=== PATIENT | male | born 1940 | race Caucasian/White ===

== ENCOUNTER 2018-04-05 18:47 | Emergency (ER) | payer MEDICARE, OTHER, SELFPAY ==
[~2018-04-05] VITALS: Ht 175.3 cm; Wt 68.0 kg
[2018-04-05] MEDS ORDERED: TAMS.4ER PO (19:00)
[2018-04-05 19:24] LABS: BASOPHILS ABSOLUTE AUTO 0.04 K/mm3 (0.00-0.23); BASOPHILS PERCENT AUTO 0 % (0-2); EOSINOPHILS ABSOLUTE AUTO 0.11 K/mm3 (0.00-0.68); EOSINOPHILS PERCENT AUTO 1 % (0-6); Hematocrit 45.7 % (37.0-53.0); IMMATURE GRAN ABSOLUTE AUTO 0.06 K/mm3 (0.00-0.10); IMMATURE GRAN PERCENT AUTO 1 % (0-1); LYMPHOCYTES ABSOLUTE AUTO 1.61 K/mm3 (0.84-5.20); LYMPHOCYTES PERCENT AUTO 15 % (21-46); MONOCYTES ABSOLUTE AUTO 0.88 K/mm3 (0.16-1.47); MONOCYTES PERCENT AUTO 8 % (4-13); Mean Corpuscular HGB 28.8 pg (26.0-34.0); Mean Corpuscular HGB Conc 32.8 g/dL (31.5-36.5); Mean Corpuscular Volume 88 fL (80-100); Mean Platelet Volume 8.7 fL (9.1-12.4); NEUTROPHILS ABSOLUTE AUTO 8.02 K/mm3 (1.96-9.15); NEUTROPHILS PERCENT AUTO 75 % (41-73); Platelet Count 222 K/mm3 (150-400); RDW Coefficient Variation 14.1 % (11.7-14.2); RDW Standard Deviation 45.7 fL (35.1-46.3); White Blood Cell Count 10.72 K/mm3 (4.00-11.30)
[2018-04-05 19:45] LABS: Alanine Aminotransfer (ALT/SGP 25 U/L (12-78); Albumin, Blood 3.5 g/dL (3.4-5.0); Albumin/Globulin Ratio 0.9 (0.8-1.8); Alk Phos 118 U/L (50-136); Anion Gap 8 mmol/L (6-16); Aspartate Aminotrans (AST/SGOT 20 U/L (12-37); Bilirubin, Total 0.4 mg/dL (0.1-1.0); Blood Urea Nitrogen 20 mg/dL (8-24); Bun/Creatinine Ratio 18.7 (12.0-20.0); CO2, Blood 22 mmol/L (21-32); Calcium, Blood 9.2 mg/dL (8.5-10.1); Chloride, Blood 109 mmol/L (98-108); Creatinine, Blood 1.07 mg/dL (0.60-1.20); Globulin, Blood 4.1 g/dL (2.2-4.0); Glomerular Filtration Rate >60 (60-); Glucose, Blood 110 mg/dL (70-99); Magnesium, Blood 2.3 mg/dL (1.6-2.4); Potassium, Blood 3.7 mmol/L (3.5-5.5); Sodium, Blood 139 mmol/L (136-145); Total Protein, Blood 7.6 g/dL (6.4-8.2)
== END 2018-04-05 22:37 | disposition home or self-care (01) ==
LOC: ER 18:47
PROVIDERS: Emergency Medicine
DX: R56.9 Unspecified convulsions (principal); Z88.1 Allergy status to other antibiotic agents; Z79.899 Other long term (current) drug therapy
CPT/HCPCS: 70450; 80053; 83735; 84100; 85025; 93005; 93010; 99285-25

== ENCOUNTER 2018-06-27 09:04 | Emergency (ER) | payer MEDICARE, OTHER ==
[~2018-06-27] VITALS: Ht 175.3 cm; Wt 65.8 kg
[~2018-06-27 09:04] MED LIST: LEVE500 PO; LISI5 PO; TAMS.4ER PO
[2018-06-27 11:11] LABS: BASOPHILS ABSOLUTE AUTO 0.04 K/mm3 (0.00-0.23); BASOPHILS PERCENT AUTO 1 % (0-2); EOSINOPHILS ABSOLUTE AUTO 0.05 K/mm3 (0.00-0.68); EOSINOPHILS PERCENT AUTO 1 % (0-6); Hematocrit 43.9 % (37.0-53.0); Hemoglobin 14.3 g/dL (13.5-17.5); IMMATURE GRAN ABSOLUTE AUTO 0.04 K/mm3 (0.00-0.10); IMMATURE GRAN PERCENT AUTO 1 % (0-1); LYMPHOCYTES ABSOLUTE AUTO 1.16 K/mm3 (0.84-5.20); LYMPHOCYTES PERCENT AUTO 17 % (21-46); MONOCYTES ABSOLUTE AUTO 0.66 K/mm3 (0.16-1.47); MONOCYTES PERCENT AUTO 9 % (4-13); Mean Corpuscular HGB 28.8 pg (26.0-34.0); Mean Corpuscular HGB Conc 32.6 g/dL (31.5-36.5); Mean Corpuscular Volume 89 fL (80-100); Mean Platelet Volume 8.8 fL (9.1-12.4); NEUTROPHILS ABSOLUTE AUTO 5.07 K/mm3 (1.96-9.15); NEUTROPHILS PERCENT AUTO 72 % (41-73); Platelet Count 221 K/mm3 (150-400); RDW Coefficient Variation 13.4 % (11.7-14.2); RDW Standard Deviation 43.4 fL (35.1-46.3); Red Blood Cell Count 4.96 M/mm3 (4.30-5.90); White Blood Cell Count 7.02 K/mm3 (4.00-11.30)
[2018-06-27 11:30] LABS: Alanine Aminotransfer (ALT/SGP 23 U/L (12-78); Albumin, Blood 3.3 g/dL (3.4-5.0); Albumin/Globulin Ratio 0.8 (0.8-1.8); Alk Phos 118 U/L (50-136); Anion Gap 6 mmol/L (6-16); Aspartate Aminotrans (AST/SGOT 15 U/L (12-37); Bilirubin, Total 0.3 mg/dL (0.1-1.0); Blood Urea Nitrogen 17 mg/dL (8-24); CO2, Blood 27 mmol/L (21-32); Calcium, Blood 9.1 mg/dL (8.5-10.1); Chloride, Blood 107 mmol/L (98-108); Creatinine, Blood 1.06 mg/dL (0.60-1.20); Glomerular Filtration Rate >60 (60-); Glucose, Blood 101 mg/dL (70-99); Magnesium, Blood 2.2 mg/dL (1.6-2.4); Potassium, Blood 4.5 mmol/L (3.5-5.5); Sodium, Blood 140 mmol/L (136-145); Total Protein, Blood 7.3 g/dL (6.4-8.2); Troponin I <0.015 ng/mL (0.000-0.040)
== END 2018-06-27 12:19 | disposition home or self-care (01) ==
LOC: ER 09:04
PROVIDERS: Emergency Medicine
DX: G40.909 Epilepsy, unspecified, not intractable, without status epilepticus (principal); F06.4 Anxiety disorder due to known physiological condition; Z88.1 Allergy status to other antibiotic agents; Z79.899 Other long term (current) drug therapy
CPT/HCPCS: 36415; 71045; 80053; 83735; 84443; 84484; 85025; 93005; 93010; 99284-25

== ENCOUNTER 2019-03-21 11:40 | Emergency (ER) | payer MEDICARE, OTHER ==
[~2019-03-21] VITALS: Ht 175.3 cm; Wt 65.8 kg
[2019-03-21 13:26] LABS: Source, Urine Clean Catch
[2019-03-21 13:49] LABS: Bilirubin, Urine Neg (Neg); Blood, Urine 1+ (Neg); Glucose Qualitative, Urine 1+ (Neg); Ketones, Urine 1+ (Neg); Leukocyte Esterase, Urine 3+ (Neg); Nitrite, Urine Pos (Neg); Protein, Urine 2+ (Neg); Urobilinogen, Urine NORM (Normal)
[2019-03-21 14:00] LABS: Appearance, Urine Clear (Clear); Color, Urine Yellow (P-Yellow)
[2019-03-21 14:38] LABS: Bacteria Rare /hpf; Red Blood Cells, Urine 0-2 /hpf (0-2); Squamous Epithelial Cells Few /hpf (Few); White Blood Cells, Urine Rare /hpf (0-5)
[2019-03-21] MEDS ORDERED: Keflex500 MG PO (16:43)
== END 2019-03-21 18:04 | disposition home or self-care (01) ==
LOC: ER 11:40
PROVIDERS: Emergency Medicine
DX: N39.0 Urinary tract infection, site not specified (principal); Z88.1 Allergy status to other antibiotic agents; Z79.899 Other long term (current) drug therapy; I10 Essential (primary) hypertension
CPT/HCPCS: 51701; 51702; 51798; 81001; 87086; 99283-25

== ENCOUNTER 2020-06-20 09:12 | Emergency (ER) | payer MEDICARE, OTHER ==
[~2020-06-20] VITALS: Ht 167.6 cm; Wt 66.2 kg
[~2020-06-20 09:12] MED LIST changes: +Keflex500 MG PO
[2020-06-20 11:00] LABS: BASOPHILS ABSOLUTE AUTO 0.04 K/mm3 (0.00-0.23); BASOPHILS PERCENT AUTO 0 % (0-2); EOSINOPHILS ABSOLUTE AUTO 0.07 K/mm3 (0.00-0.68); EOSINOPHILS PERCENT AUTO 1 % (0-6); Hematocrit 49.9 % (37.0-53.0); Hemoglobin 16.2 g/dL (13.5-17.5); IMMATURE GRAN ABSOLUTE AUTO 0.05 K/mm3 (0.00-0.10); IMMATURE GRAN PERCENT AUTO 1 % (0-1); LYMPHOCYTES ABSOLUTE AUTO 1.34 K/mm3 (0.84-5.20); LYMPHOCYTES PERCENT AUTO 15 % (21-46); MONOCYTES PERCENT AUTO 9 % (4-13); Mean Corpuscular HGB 28.8 pg (26.0-34.0); Mean Corpuscular HGB Conc 32.5 g/dL (31.5-36.5); Mean Corpuscular Volume 89 fL (80-100); Mean Platelet Volume 8.8 fL (9.1-12.4); NEUTROPHILS ABSOLUTE AUTO 6.75 K/mm3 (1.96-9.15); NEUTROPHILS PERCENT AUTO 75 % (41-73); Platelet Count 249 K/mm3 (150-400); RDW Coefficient Variation 12.6 % (11.7-14.2); RDW Standard Deviation 41.1 fL (35.1-46.3); Red Blood Cell Count 5.62 M/mm3 (4.30-5.90); White Blood Cell Count 9.05 K/mm3 (4.00-11.30)
[2020-06-20 11:17] LABS: Alanine Aminotransfer (ALT/SGP 22 U/L (12-78); Albumin, Blood 3.3 g/dL (3.4-5.0); Albumin/Globulin Ratio 0.8 (0.8-1.8); Alk Phos 137 U/L (50-136); Anion Gap 4 mmol/L (6-16); Aspartate Aminotrans (AST/SGOT 21 U/L (12-37); Bilirubin, Total 0.5 mg/dL (0.1-1.0); Blood Urea Nitrogen 23 mg/dL (8-24); Bun/Creatinine Ratio 21.5 (12.0-20.0); CO2, Blood 26 mmol/L (21-32); Calcium, Blood 9.4 mg/dL (8.5-10.1); Chloride, Blood 111 mmol/L (98-108); Creatinine, Blood 1.07 mg/dL (0.60-1.20); Globulin, Blood 4.2 g/dL (2.2-4.0); Glomerular Filtration Rate >60 (60-); Glucose, Blood 95 mg/dL (70-99); Potassium, Blood 4.3 mmol/L (3.5-5.5); Sodium, Blood 141 mmol/L (136-145); Total Protein, Blood 7.5 g/dL (6.4-8.2)
== END 2020-06-20 13:20 | disposition home or self-care (01) ==
LOC: ER 09:12
PROVIDERS: Emergency Medicine
DX: R29.818 Other symptoms and signs involving the nervous system (principal); R26.2 Difficulty in walking, not elsewhere classified; I10 Essential (primary) hypertension; Z86.011 Personal history of benign neoplasm of the brain; Z88.1 Allergy status to other antibiotic agents; Z79.899 Other long term (current) drug therapy
CPT/HCPCS: 36415; 70450; 80053; 83735; 85025; 93005; 93010; 96374; 96375; 99284-25; J1100; J3360

== ENCOUNTER 2021-01-12 05:38 | Emergency (ER) | payer MEDICARE, OTHER ==
[~2021-01-12] VITALS: Ht 177.8 cm; Wt 69.0 kg
[2021-01-12 06:12] LABS: BASOPHILS ABSOLUTE AUTO 0.04 K/mm3 (0.00-0.23); BASOPHILS PERCENT AUTO 1 % (0-2); EOSINOPHILS PERCENT AUTO 0 % (0-6); Hemoglobin 15.2 g/dL (13.5-17.5); IMMATURE GRAN ABSOLUTE AUTO 0.19 K/mm3 (0.00-0.10); IMMATURE GRAN PERCENT AUTO 5 % (0-1); LYMPHOCYTES ABSOLUTE AUTO 0.31 K/mm3 (0.84-5.20); LYMPHOCYTES PERCENT AUTO 8 % (21-46); MONOCYTES ABSOLUTE AUTO 0.04 K/mm3 (0.16-1.47); MONOCYTES PERCENT AUTO 1 % (4-13); Mean Corpuscular HGB 28.7 pg (26.0-34.0); Mean Corpuscular HGB Conc 33.8 g/dL (31.5-36.5); Mean Corpuscular Volume 85 fL (80-100); Mean Platelet Volume 9.1 fL (9.1-12.4); NEUTROPHILS ABSOLUTE AUTO 3.23 K/mm3 (1.96-9.15); NEUTROPHILS PERCENT AUTO 85 % (41-73); Platelet Count 187 K/mm3 (150-400); RDW Coefficient Variation 13.2 % (11.7-14.2); RDW Standard Deviation 40.9 fL (35.1-46.3); White Blood Cell Count 3.81 K/mm3 (4.00-11.30)
[2021-01-12 06:24] LABS: Alanine Aminotransfer (ALT/SGP 23 U/L (12-78); Albumin, Blood 3.2 g/dL (3.4-5.0); Albumin/Globulin Ratio 0.9 (0.8-1.8); Alk Phos 120 U/L (50-136); Anion Gap 9 mmol/L (6-16); Aspartate Aminotrans (AST/SGOT 23 U/L (12-37); Bilirubin, Total 0.6 mg/dL (0.1-1.0); Blood Urea Nitrogen 25 mg/dL (8-24); CO2, Blood 20 mmol/L (21-32); Calcium, Blood 8.2 mg/dL (8.5-10.1); Chloride, Blood 112 mmol/L (98-108); Creatinine, Blood 1.04 mg/dL (0.60-1.20); Globulin, Blood 3.4 g/dL (2.2-4.0); Glomerular Filtration Rate >60 (60-); Glucose, Blood 120 mg/dL (70-99); Potassium, Blood 3.4 mmol/L (3.5-5.5); Sodium, Blood 141 mmol/L (136-145); Total Protein, Blood 6.6 g/dL (6.4-8.2)
[2021-01-12 06:43] LABS: Source, Urine Clean Catch
[2021-01-12 06:45] LABS: Bilirubin, Urine Neg (Neg); Blood, Urine 5+ (Neg); Glucose Qualitative, Urine Neg (Neg); Ketones, Urine Neg (Neg); Leukocyte Esterase, Urine 3+ (Neg); Nitrite, Urine Pos (Neg); Protein, Urine 1+ (Neg); Urobilinogen, Urine NORM (Normal)
[2021-01-12] MEDS ORDERED: Prinivil10 MG PO (07:01)
[2021-01-12] MEDS ORDERED: DEXA4 PO (07:01)
[2021-01-12] MEDS ORDERED: ZANTAC-360 (FAM20 MG PO (07:02)
[2021-01-12 07:03] LABS: Appearance, Urine Hazy (Clear); Color, Urine Yellow (P-Yellow)
[2021-01-12] MEDS ORDERED: Keppra750 MG PO (07:03)
[2021-01-12] MEDS ORDERED: METOPROLOL TART25 MG PO (07:03)
[2021-01-12 07:04] LABS: Red Blood Cells, Urine TNTC /hpf (0-2)
[2021-01-12 07:06] LABS: Bacteria Many /hpf; Squamous Epithelial Cells Rare /hpf (Few)
[2021-01-12] MEDS ORDERED: CEPH500 PO (11:01)
== END 2021-01-12 11:20 | disposition home or self-care (01) ==
LOC: ER 05:38
PROVIDERS: Emergency Medicine
DX: R33.9 Retention of urine, unspecified (principal); R39.15 Urgency of urination; R10.9 Unspecified abdominal pain; I10 Essential (primary) hypertension; Z79.899 Other long term (current) drug therapy
CPT/HCPCS: 51702; 74176; 80053; 81001; 83690; 85025; 87077; 87086; 87186; 96365-59; 96375-59; 99284-25; J0696; J1170; J2405

== ENCOUNTER 2021-01-26 08:19 | Emergency (ER) | payer MEDICARE, OTHER ==
[~2021-01-26] VITALS: Ht 172.7 cm; Wt 72.6 kg
[~2021-01-26 08:19] MED LIST changes: +CEPH500 PO; +DEXA4 PO; +Keppra750 MG PO; +METOPROLOL TART25 MG PO; +Prinivil10 MG PO; +ZANTAC-360 (FAM20 MG PO
[2021-01-26] MEDS ORDERED: LIDO5TO TOP (09:40)
== END 2021-01-26 10:22 | disposition home or self-care (01) ==
LOC: ER 08:19
DX: N36.8 Other specified disorders of urethra (principal); I10 Essential (primary) hypertension; Z88.1 Allergy status to other antibiotic agents; Z79.899 Other long term (current) drug therapy
CPT/HCPCS: 99283; A9270

== ENCOUNTER 2022-01-14 06:08 | Emergency (ER) | payer MEDICARE, OTHER ==
[~2022-01-14] VITALS: Ht 167.6 cm; Wt 59.0 kg
[~2022-01-14 06:08] MED LIST changes: +LIDO5TO TOP
[2022-01-14 06:32] LABS: BASOPHILS ABSOLUTE AUTO 0.05 K/mm3 (0.00-0.23); BASOPHILS PERCENT AUTO 1 % (0-2); EOSINOPHILS PERCENT AUTO 1 % (0-6); Hematocrit 53.6 % (37.0-53.0); Hemoglobin 17.8 g/dL (13.5-17.5); IMMATURE GRAN ABSOLUTE AUTO 0.04 K/mm3 (0.00-0.10); IMMATURE GRAN PERCENT AUTO 1 % (0-1); LYMPHOCYTES ABSOLUTE AUTO 2.11 K/mm3 (0.84-5.20); LYMPHOCYTES PERCENT AUTO 27 % (21-46); MONOCYTES ABSOLUTE AUTO 0.65 K/mm3 (0.16-1.47); MONOCYTES PERCENT AUTO 8 % (4-13); Mean Corpuscular HGB 27.9 pg (26.0-34.0); Mean Corpuscular HGB Conc 33.2 g/dL (31.5-36.5); Mean Corpuscular Volume 84 fL (80-100); Mean Platelet Volume 8.7 fL (9.1-12.4); NEUTROPHILS ABSOLUTE AUTO 4.75 K/mm3 (1.96-9.15); NEUTROPHILS PERCENT AUTO 62 % (41-73); Platelet Count 239 K/mm3 (150-400); RDW Coefficient Variation 13.2 % (11.7-14.2); RDW Standard Deviation 39.9 fL (35.1-46.3); Red Blood Cell Count 6.37 M/mm3 (4.30-5.90)
[2022-01-14 07:02] LABS: Albumin, Blood 3.6 g/dL (3.4-5.0); Albumin/Globulin Ratio 0.8 (0.8-1.8); Bilirubin, Total 0.4 mg/dL (0.1-1.0); Bun/Creatinine Ratio 12.7 (12.0-20.0); Calcium, Blood 9.7 mg/dL (8.5-10.1); Creatinine, Blood 1.18 mg/dL (0.60-1.20); Globulin, Blood 4.6 g/dL (2.2-4.0); Potassium, Blood 4.2 mmol/L (3.5-5.5); Total Protein, Blood 8.2 g/dL (6.4-8.2)
== END 2022-01-14 11:23 | disposition home or self-care (01) ==
LOC: ER 06:08
PROVIDERS: Emergency Medicine
DX: R56.9 Unspecified convulsions (principal); G93.89 Other specified disorders of brain; I10 Essential (primary) hypertension; Z88.8 Allergy status to other drugs, medicaments and biological substances; Z79.899 Other long term (current) drug therapy
CPT/HCPCS: 36415; 70450; 80053; 85025; 93005; 93010; J1953; J2060

== ENCOUNTER 2022-04-06 10:19 | Inpatient (IN) | payer MEDICARE, OTHER ==
[~2022-04-06] VITALS: Ht 172.7 cm; Wt 53.0 kg
[2022-04-06 10:53] LABS: BASOPHILS ABSOLUTE AUTO 0.05 K/mm3 (0.00-0.23); BASOPHILS PERCENT AUTO 0 % (0-2); EOSINOPHILS PERCENT AUTO 0 % (0-6); Hematocrit 54.2 % (37.0-53.0); Hemoglobin 18.6 g/dL (13.5-17.5); IMMATURE GRAN PERCENT AUTO 1 % (0-1); LYMPHOCYTES ABSOLUTE AUTO 0.48 K/mm3 (0.84-5.20); LYMPHOCYTES PERCENT AUTO 3 % (21-46); MONOCYTES ABSOLUTE AUTO 1.21 K/mm3 (0.16-1.47); MONOCYTES PERCENT AUTO 8 % (4-13); Mean Corpuscular HGB 28.7 pg (26.0-34.0); Mean Corpuscular HGB Conc 34.3 g/dL (31.5-36.5); Mean Corpuscular Volume 84 fL (80-100); Mean Platelet Volume 8.3 fL (9.1-12.4); NEUTROPHILS ABSOLUTE AUTO 12.59 K/mm3 (1.96-9.15); NEUTROPHILS PERCENT AUTO 87 % (41-73); Platelet Count 247 K/mm3 (150-400); RDW Coefficient Variation 13.6 % (11.7-14.2); RDW Standard Deviation 41.2 fL (35.1-46.3); Red Blood Cell Count 6.48 M/mm3 (4.30-5.90); White Blood Cell Count 14.43 K/mm3 (4.00-11.30)
[2022-04-06 11:12] LABS: International Normalized Ratio 1.06; Prothrombin Time Results 11.1 Sec (9.7-11.5)
[2022-04-06 11:14] LABS: Albumin, Blood 3.7 g/dL (3.4-5.0); Albumin/Globulin Ratio 0.8 (0.8-1.8); Bilirubin, Total 0.9 mg/dL (0.1-1.0); Bun/Creatinine Ratio 14.2 (12.0-20.0); Calcium, Blood 9.9 mg/dL (8.5-10.1); Creatinine, Blood 1.48 mg/dL (0.60-1.20); Globulin, Blood 4.4 g/dL (2.2-4.0); Potassium, Blood 3.9 mmol/L (3.5-5.5); Total Protein, Blood 8.1 g/dL (6.4-8.2)
[2022-04-06] MEDS ORDERED: Keppra750 MG PO (13:04)
[2022-04-06 13:41] LABS: Influenza A, PCR NEGATIVE (NEGATIVE); Influenza B, PCR NEGATIVE (NEGATIVE); Resp Syncytial Virus, PCR NEGATIVE (NEGATIVE); SARS-Cov-2 (COVID-19) PCR, MMC NEGATIVE (NEGATIVE)
[2022-04-06 16:14] LABS: Source, Urine Clean Catch
[2022-04-06 17:22] LABS: CPK Creatine Kinase 2112 U/L (39-308)
[2022-04-06 17:44] LABS: Creatine Kinase MB 34.3 ng/mL (0.0-3.6); Creatine Kinase MB Index 1.6 (0.0-4.0)
[2022-04-06 17:46] LABS: Appearance, Urine Bloody (Clear); Bilirubin, Urine Neg (Neg); Blood, Urine 5+ (Neg); Color, Urine Brown (P-Yellow); Glucose Qualitative, Urine Neg (Neg); Ketones, Urine 4+ (Neg); Leukocyte Esterase, Urine 1+ (Neg); Nitrite, Urine Pos (Neg); Protein, Urine 3+ (Neg); Specific Gravity, Urine 1.025 (1.003-1.022); Urobilinogen, Urine 1+ (Normal)
[2022-04-06 18:09] LABS: Red Blood Cells, Urine TNTC /hpf (0-2)
[2022-04-06 18:11] LABS: Bacteria Many /hpf; Renal Epithelial Rare /hpf (0-Rare); Squamous Epithelial Cells Rare /hpf (Few)
--- NOTE | 2022-04-06 18:47 | NUR ---
END OF SHIFT SUMMARY: NO CHANGE FROM SHIFT ASSESSMENT, PLEASE SEE ASSESSMENT
--- NOTE | 2022-04-06 20:05 | NUR ---
CALL TO PHYSICIAN This RN calls Dr Garza to update on pt status and discuss concerns regarding frequent seizures every 5 mins lasting several seconds. Notified that pt has decrease in SPO2 while seizing on 4.5 L of O2 via NC but sats back up to mid 90's within several seconds following. Notified of no PRN orders for seizures at this time and note from physicians stating little to no effect on seizures with admin of ativan in ER. Discussed concern for lack of CT w/contrast performed and order for MRI w/wo contrast that will not be able to be performed until tomorrow if possible. Provider states she will get more information and update RN with any new orders. Pt responds with some words, follows some commands such as to squeeze this RN's hand with R. L side arm and leg appear flacid, unable to squeeze this RN's hand with L which appears contractured. Pt has R-sided gaze, pupils are equal and reactive, 2-3 mm. Some aspirate with weak cough, gurgling heard frequently and suction needed. Pt states he is 83 years old, when asked the month speech is unintelligble. Pt responds with "Yes" when asked if sister Ivania is his decision maker. Pt has frequent seizure-like activity as evidenced by full body tonic-clonic movements and pt groaning and not responding to this RN for several seconds, appears to desat on the monitor while on 4.5 L O2 via NC. Back up to 96% from 70-80% in 1-2 seconds following drop during seizure-activity. Pt responds with garbled one word answers following cessation.
--- NOTE | 2022-04-06 23:11 | NUR ---
CALL TO PROVIDER THIS RN CALLS DR GARRIDO UPDATES ON WHAT DISCUSSED WITH RESIDENT PRIOR AND CONCERNS REGARDING CT SCAN AND PT SEIZURES. DISCUSSED CONCERN FOR NEED FOR ANTIBIOTICS. DR GARRIDO ORDERS RECEPHIN 2 GM TO BE GIVEN NOW IV AND DAILY. GIVES ORDER FOR OT DOSE OF ATIVAN 2 MG IV PRN FOR TRUE STATUS PRN IF PT CANNOT MAINTAIN AIWAY D/T SEIZURE LASTING 30 SECS OR GREATER.
[2022-04-07 02:35] LABS: Base Excess Venous -4.1 mmol/L; Bicarbonate Venous 21.3 mmol/L (24.0-30.0); PCO2 Venous 32.2 mmHg (38-42); pH Blood Venous 7.41 (7.34-7.37)
[2022-04-07 02:39] LABS: BASOPHILS ABSOLUTE AUTO 0.01 K/mm3 (0.00-0.23); BASOPHILS PERCENT AUTO 0 % (0-2); EOSINOPHILS PERCENT AUTO 0 % (0-6); Hematocrit 43.5 % (37.0-53.0); Hemoglobin 14.7 g/dL (13.5-17.5); IMMATURE GRAN ABSOLUTE AUTO 0.01 K/mm3 (0.00-0.10); IMMATURE GRAN PERCENT AUTO 0 % (0-1); LYMPHOCYTES ABSOLUTE AUTO 0.92 K/mm3 (0.84-5.20); LYMPHOCYTES PERCENT AUTO 10 % (21-46); MONOCYTES ABSOLUTE AUTO 0.85 K/mm3 (0.16-1.47); MONOCYTES PERCENT AUTO 9 % (4-13); Mean Corpuscular HGB 28.5 pg (26.0-34.0); Mean Corpuscular HGB Conc 33.8 g/dL (31.5-36.5); Mean Corpuscular Volume 85 fL (80-100); Mean Platelet Volume 8.5 fL (9.1-12.4); NEUTROPHILS ABSOLUTE AUTO 7.86 K/mm3 (1.96-9.15); NEUTROPHILS PERCENT AUTO 82 % (41-73); Platelet Count 192 K/mm3 (150-400); RDW Coefficient Variation 13.9 % (11.7-14.2); RDW Standard Deviation 42.9 fL (35.1-46.3); Red Blood Cell Count 5.15 M/mm3 (4.30-5.90); White Blood Cell Count 9.65 K/mm3 (4.00-11.30)
[2022-04-07 03:03] LABS: Albumin, Blood 2.6 g/dL (3.4-5.0); Albumin/Globulin Ratio 0.7 (0.8-1.8); Bilirubin, Total 0.7 mg/dL (0.1-1.0); Bun/Creatinine Ratio 25.2 (12.0-20.0); Calcium, Blood 8.6 mg/dL (8.5-10.1); Creatinine, Blood 1.03 mg/dL (0.60-1.20); Globulin, Blood 3.5 g/dL (2.2-4.0); Potassium, Blood 4.1 mmol/L (3.5-5.5)
[2022-04-07 03:06] LABS: Total Protein, Blood 6.1 g/dL (6.4-8.2)
--- NOTE | 2022-04-07 07:00 | NUR ---
SHIFT SUMMARY PT SEEMS LETHARGIC T/O SHIFT, RESPONDS WITH YES AND SOME GARBLED RESPONSES, SEEMED TO IMPROVE TOWARDS EARLY AM. PUPILS EQUAL AND REACTIVE, R SIDE GAZE, PT APPEARS TO NEGLECT L SIDE, L SIDE FACIAL PARALYSIS VISIBLE WITH SOME IMPROVEMENT FROM START OF SHIFT (CAN LIFT BROWS FOR THIS RN, AT START COULD NOT LIFT L BROW), REFLEXES PRESENT IN BLE. DIFFICULT TO ASSESS SENSATION D/T PT NEGLECT TO L SIDE AND UNABLE TO VERBALIZE A CONFIRMATION TO THAT SIDE. VERBALIZES WHEN THIS RN TOUCHES R ARM OR LEG. PT HAS COPIOUS SPUTUM AND DROOL, APPEARS TO HAVE DIFFICULTY SWALLOWING SECRETIONS. FREQUENT SUCTIONING AND ORAL CARE PERFORMED. PT IS TACHYPNEIC AT TIMES WITH SHALLOW BREATHING. SATS 93-95% ON RA THIS AM WHEN PULLED OFF CANNULA AND REQUESTED TO TRY IT OFF. PLACED BACK ON WHEN SOME APNEA IS NOTED WITH DESATS TO 90-92%. LS OTHERWISE CLEAR AND DIM. PT TURNED FREQUENTLY AND CHANGED D/T INCONTINENT OF URINE, NO STOOL NOTED THIS SHIFT. PT DENIES ABD TENDERNESS. (SOME DARK BROWN EXPECTORATE NOTED AND REPORTED TO DR GARRIDO). (PHOTO IN CHART) PT'S SEIZURE ACTIVITY HAS APPEARED TO LESSEN IN FREQUENCY T/O SHIFT. PT BECOMES TREMULOUS AND APPEARS TO HAVE SOME SEIZURE ACTIVITY WITH TURNS IN BED FOR REPOSITIONING AND CLEANING.
--- NOTE | 2022-04-07 15:15 | NUR ---
SEIZURE NOTE THIS NURSE WAS NOTIFIED THAT PT HAD SEIZURE ACTIVITY WHILE WORKING WITH GHADA HICKMAN SPEECH THERAPIST AT APPROX. 1430, TILE MACHINE OPERATOR DEEDEE LARSEN PROVIDED CARE DURING SEIZURE ACTIVITY, SEE EMAR WELL. THIS NURSE PLACED CALL TO DR. OSULLIVAN WITH NO ANSWER, NO VOICEMAIL SET UP SO NO MESSAGE LEFT. WILL CONTINUE TO REACH TO NOTIFY HER OF SEIZURE EVENT. SISTER WAS ALSO AT BEDSIDE. PT NOW APPEARS TO BE SLEEPING. CALL LIGHT WITHIN REACH, BED IN LOW, SEIZURE PRECAUTIONS IN PLACE.
--- NOTE | 2022-04-07 17:37 | NUR ---
SHIFT SUMMARY THIS AM PT WAS SOMNOLENT BUT ORIENTED X 4, HE WOULD WAKE TO VERBAL STIMULI. SPEECH WAS GARBLED BUT PT WAS ABLE TO MAKE HIS NEEDS KNOW. LLE HAD MINIMAL SPASTIC MOVEMENT THIS AM. NOW LLE HAS SPASTIC MOVEMENT W/ LEG FLEXING 90 DEGREE AT HIP AND KNEE. SEE PREVIOUS NOTE REGARDING SEIZURE ACTIVITY THIS AFTERNOON. BP AND HR STABLE. AWARE OF PROLONGED QT INTERVAL. THIS AFTERNOON THIS NURSE WAS NOTIFIED BY [employer] OF QT INTERVAL OF 600, THIS NURSE DISCUSSED QT INTERVAL W/ DEEDEE PENA RN. PT DENIED FEELINGS OF PAIN. SINCE SEIZURE ACTIVITY PT HAS BEEN SOMNOLENT AND WILL NOT WAKE TO NOXIOUS OR VERBAL STIMULI BUT CAN FOLLOW COMMAND SUCH WHEN TESTING SUPERVISOR ROVING DEPARTMENT STRENGTH AND DORSIFLEXION/PLANTAR FLEXION STRENGTH. SISTER WAS AT BEDSIDE FOR MAJORITY OF AFTERNOON. PER SPEECH THERAPY ORDERS PT IS NPO. Q2 TURNING IMPLIMENTED TO KEEP OFF OF PRESSURE POINTS. HEEL PROTECTORS IN PLACE AND HEELS ARE FLOATED. PT HAS BEEN INCONTINENT OF URINE, BRIEF CHANGES PROVIDED NECESSARY. MRI COMPLETED TODAY. SEE EMAR FOR CHANGES IN MEDICAL MANAGEMENT FOR SEIZURE ACTIVITY. SEIZURE PRECUATIONS IN PLACE, CALL LIGHT W/IN REACH OF RIGHT HAND.
--- NOTE | 2022-04-07 18:15 | NUR ---
CARE NOTE THIS NURSE WAS NOTIFIED BY KACI NELSON THAT PT WAS HAVING ANOTHER SEIZURE AT APPROX. 1800. DR. OSULLIVAN MADE AWARE. KEPPRA NOW INFUSING. DEEDEE PENA RN IS CURRENTLY AT BEDSIDE. NEW ORDERS PENDING FROM DR. OSULLIVAN.
[2022-04-08 04:07] LABS: BASOPHILS ABSOLUTE AUTO 0.01 K/mm3 (0.00-0.23); BASOPHILS PERCENT AUTO 0 % (0-2); EOSINOPHILS ABSOLUTE AUTO 0.02 K/mm3 (0.00-0.68); EOSINOPHILS PERCENT AUTO 0 % (0-6); Hematocrit 39.7 % (37.0-53.0); Hemoglobin 13.5 g/dL (13.5-17.5); IMMATURE GRAN ABSOLUTE AUTO 0.02 K/mm3 (0.00-0.10); IMMATURE GRAN PERCENT AUTO 0 % (0-1); LYMPHOCYTES ABSOLUTE AUTO 0.72 K/mm3 (0.84-5.20); LYMPHOCYTES PERCENT AUTO 11 % (21-46); MONOCYTES PERCENT AUTO 9 % (4-13); Mean Corpuscular HGB 28.8 pg (26.0-34.0); Mean Corpuscular Volume 85 fL (80-100); Mean Platelet Volume 8.7 fL (9.1-12.4); NEUTROPHILS ABSOLUTE AUTO 5.19 K/mm3 (1.96-9.15); NEUTROPHILS PERCENT AUTO 79 % (41-73); Platelet Count 166 K/mm3 (150-400); RDW Coefficient Variation 13.9 % (11.7-14.2); RDW Standard Deviation 43.3 fL (35.1-46.3); Red Blood Cell Count 4.68 M/mm3 (4.30-5.90); White Blood Cell Count 6.56 K/mm3 (4.00-11.30)
[2022-04-08 04:32] LABS: Albumin, Blood 2.4 g/dL (3.4-5.0); Albumin/Globulin Ratio 0.7 (0.8-1.8); Bilirubin, Total 0.5 mg/dL (0.1-1.0); Bun/Creatinine Ratio 23.3 (12.0-20.0); Calcium, Blood 8.4 mg/dL (8.5-10.1); Creatinine, Blood 0.9 mg/dL (0.60-1.20); Globulin, Blood 3.5 g/dL (2.2-4.0); Magnesium, Blood 1.8 mg/dL (1.6-2.4); Potassium, Blood 3.6 mmol/L (3.5-5.5); Total Protein, Blood 5.9 g/dL (6.4-8.2)
--- NOTE | 2022-04-08 04:56 | NUR ---
LOAN SERVICING REPRESENTATIVE SUMMARY PT BEGAN SHIFT OBTUNDED W ONLY MINOR MOTOR MOVEMENTS WHEN MOVED. THE PT'S MENTATION HAS IMPROVED THROUGHOUT THE SHIFT AND IS ANSWERING QUESTIONS APPROPRIATELY THIS AM. PT'S LEFT ARM REMAINS LOCALIZED TO HIS ABDOMEN. R ARM SHOWS NO IMPAIRMENT. RLE MAINLY FLACCID. LLE W GROSS MOTOR MOVEMENT W FLEXION AT THE HIP. O2 SATS >92% ON 3L NC W NPA IN PLACE AT START OF THE SHIFT BUT PT WEANED DOWN TO RM AIR THIS AM. BP WNL AND STABLE. TELE SHOWING SR IN THE 70s-80s W PROLONGED QT INTERVAL. PT REQUIRING SUCTIONING THROUGHOUT THE SHIFT TO CLEAR HIS SECRETIONS. WILL REPORT TO ONCOMING RN.
--- NOTE | 2022-04-08 18:30 | NUR ---
SHIFT SUMMARY PATIENT HAS BEEN ANSWERING QUESTIONS APPROPRIATELY THIS SHIFT. MORE AWAKE THAN PREVIOUS SHIFT. PATIENT USED CALL LIGHT APPRORIATELY TO CALL FOR HELP. PATIENT DOES CONTINUE TO BE LETHARGIC BUT WAKES WITH VERBAL STIMULI. NO NOTED SEIZURE ACTIVITY THIS SHIFT. PATIENT BEING TURNED Q2HRS. ORAL CARE GIVEN THROUGHOUT THE SHIFT. ST DETERMINED THE PATIENT IS STILL NOT SWALLOWING SO HE REMAINS NPO; MD AWARE. LEFT ARM CONTINUES TO HAVE NO MOVEMENT. RIGHT GAZE NOTED BUT PATIENT ABLE TO TRACK PEN WITH EYES. BRISK PUPIL RESPONSE LATER IN THE SHIFT COMPARED TO THE BEGINNING OF THE SHIFT. CONDOM CATHETER IN PLACE DRAINING LIGHT YELLOW URINE. MEPIPLEX IN PLACE ON COCCYX. NPA REMOVED EARLIER IN THE SHIFT SO PATIENT COULD WORK WITH SPEECH THERAPY. NO SIGNS OF DISTRESS OR ACUTE EVENTS DURING THIS SHIFT. BED IN LOWEST POSITION AND CALL LIGHT WITHIN REACH. WILL CONTINUE TO MONITOR UNTIL SHIFT CHANGE AT 1900.
[2022-04-09 04:10] LABS: BASOPHILS ABSOLUTE AUTO 0.03 K/mm3 (0.00-0.23); BASOPHILS PERCENT AUTO 0 % (0-2); EOSINOPHILS ABSOLUTE AUTO 0.04 K/mm3 (0.00-0.68); EOSINOPHILS PERCENT AUTO 1 % (0-6); Hematocrit 41.1 % (37.0-53.0); Hemoglobin 14.2 g/dL (13.5-17.5); IMMATURE GRAN ABSOLUTE AUTO 0.03 K/mm3 (0.00-0.10); IMMATURE GRAN PERCENT AUTO 0 % (0-1); LYMPHOCYTES ABSOLUTE AUTO 0.87 K/mm3 (0.84-5.20); LYMPHOCYTES PERCENT AUTO 12 % (21-46); MONOCYTES ABSOLUTE AUTO 0.68 K/mm3 (0.16-1.47); MONOCYTES PERCENT AUTO 10 % (4-13); Mean Corpuscular HGB 28.8 pg (26.0-34.0); Mean Corpuscular HGB Conc 34.5 g/dL (31.5-36.5); Mean Corpuscular Volume 83 fL (80-100); Mean Platelet Volume 8.3 fL (9.1-12.4); NEUTROPHILS ABSOLUTE AUTO 5.35 K/mm3 (1.96-9.15); NEUTROPHILS PERCENT AUTO 77 % (41-73); Platelet Count 184 K/mm3 (150-400); RDW Coefficient Variation 13.5 % (11.7-14.2); RDW Standard Deviation 41.4 fL (35.1-46.3); Red Blood Cell Count 4.93 M/mm3 (4.30-5.90)
[2022-04-09 04:33] LABS: Albumin, Blood 2.4 g/dL (3.4-5.0); Albumin/Globulin Ratio 0.6 (0.8-1.8); Bilirubin, Total 0.9 mg/dL (0.1-1.0); Calcium, Blood 8.3 mg/dL (8.5-10.1); Creatinine, Blood 0.84 mg/dL (0.60-1.20); Globulin, Blood 3.7 g/dL (2.2-4.0); Potassium, Blood 3.2 mmol/L (3.5-5.5); Total Protein, Blood 6.1 g/dL (6.4-8.2)
--- NOTE | 2022-04-09 05:38 | NUR ---
TIRE LAYER SUMMARY PT'S MENTATION IS MUCH IMPROVED COMPARED TO THE PREVIOUS NIGHTSHIFT. PT IS TALKING IN FULL SENTENCES WHERE HE IS ORIENTED BUT HAS MOMENTS WHERE HE IS VERY CONFUSED ABOUT WHERE HE IS AND WHY HE IS HERE. PT IS NOW OPENING HIS EYES SPONTANEOUSLY BUT IS STILL VERY LETHARGIC. O2 SATS >90% ON RM AIR. BP WNL AND STABLE. TELE SHOWING SR IN THE 70'S. PT HAS HAD NO SEIZURE LIKE ACTIVITY THIS SHIFT. WILL REPORT TO ONCOMING RN.
--- NOTE | 2022-04-09 10:00 | NUR ---
UPDATE/CARE NOTE PATIENT WITH SMALL SEIZURE AT 0800 THIS AM WHILE THIS RN WAS AT BEDSIDE FOR MEDICATIONS. PATIENT BECAME STIFF IN ALL EXTREMETIES AND BEGAN HAVING TREMORS; LASTED 5-10 SECONDS. THIS RN DID NOT GIVE ATIVAN DUE TO SEIZURE BEING BRIEF AND THE PATIENT BECOMING TOO SEDATED THE LAST TIME HE HAD DOSE OF ATIVAN. PATIENT RECOVERED FROM SEIZURE WELL. PATIENT WITH STABLE VITALS; O2 >94% ON RA. ST TO BEDSIDE AROUND 0900; PATIENT FAILED BEDSIDE SWALLOW STUDY THIS AM. CONTINUES TO HAVE LACK OF GOOD SWALLOW WITH COUGHING AFTER LIQUIDS THAT IS SLIGHTLY DELAYED. PATIENT WILL REMAIN NPO. DATA WAREHOUSE SPECIALIST CONSULT IN.
[2022-04-09 12:39] LABS: Source, Urine Clean Catch
[2022-04-09 13:07] LABS: Appearance, Urine Hazy (Clear); Bilirubin, Urine Neg (Neg); Blood, Urine 5+ (Neg); Color, Urine Yellow (P-Yellow); Glucose Qualitative, Urine Neg (Neg); Ketones, Urine 3+ (Neg); Leukocyte Esterase, Urine 2+ (Neg); Nitrite, Urine Neg (Neg); Protein, Urine 2+ (Neg); Urobilinogen, Urine NORM (Normal)
[2022-04-09 14:57] LABS: Bacteria Mod /hpf; Red Blood Cells, Urine TNTC /hpf (0-2); Squamous Epithelial Cells Few /hpf (Few); Yeast/Fungi Urine Few /hpf
[2022-04-09 14:58] LABS: Renal Epithelial Rare /hpf (0-Rare)
[2022-04-09 14:59] LABS: Mucus Light (0-Heavy)
--- NOTE | 2022-04-09 18:01 | NUR ---
SHIFT SUMMARY PATIENT CALM AND COOPERATIVE WITH CARE FOR THE MAJORITY OF THE SHIFT. DOBHOFF PLACED THIS AFTERNOON AND VERIFIED WITH XRAY. FEEDING STARTED WITH JEVITY 1.2 CALS AT 25MLS/HR TO START WITH A GOAL OF 55MLS/HR; FLUSHING WITH 90MLS EVERY 4HRS. FEEDING STARTED AROUND 1500. PATIENT TOLERATING WELL. CONDOM CATH IN PLACE DRAINING YELLOW URINE WHEN CHECKED AT 1600. THIS RN ATTEMPTED TO CHECK PATIENT, REPOSITION, AND CHECK BLOOD GLUCOSE MINUTES AGO AND PATIENT REFUSED CARE FROM THIS RN. PATIENT WAS CALM/COOPERATIVE UNTIL THIS POINT OF THE SHIFT. PATIENT STATED THAT HE "WANTS TO GO HOME" AND SAYS THAT WE ARE "JUST KEEPING HIM HERE TO TAKE HIS MONEY". REASSURANCE/REORIENTATION GIVEN TO PATIENT WITH NO RESULTS. PATIENT TOLD THIS RN "NOT TO TOUCH HIM". PATIENT WANTED TO CALL SISTER, THIS RN CALLED SISTER BRITT AND PUT HER ON SPEAKER. PATIENT CONTINUED TO BE AGGITATED WITH THIS RN. PATIENT LEFT ALONE TO SEE IF HE WILL CALM DOWN PRIOR TO FURTHER CARE. PATIENT HAS NOT ATTEMPTED TO PULL OUT DOBHOFF AT THIS TIME. PATIENT WITH 5-10 SECOND SEIZURE THIS AM; MD AWARE; MEDICATING PER EMAR; SEE PREVIOUS NOTE. HEEL PROTECTOR DRESSINGS CHANGED. MEPIPLEX ON COCCYX C/D/I. Q2HR TURNS DONE THROUGHOUT SHIFT WITH ORAL CARE. EEG DONE THIS AFTERNOON. BED IN LOWEST POSITION, SEIZURE PADS IN PLACE. CALL LIGHT WITHIN REACH. WILL CONTINUE TO MONITOR UNTIL SHIFT CHANGE AT 1900.
[2022-04-10 04:08] LABS: BASOPHILS ABSOLUTE AUTO 0.04 K/mm3 (0.00-0.23); BASOPHILS PERCENT AUTO 1 % (0-2); EOSINOPHILS ABSOLUTE AUTO 0.12 K/mm3 (0.00-0.68); EOSINOPHILS PERCENT AUTO 2 % (0-6); Hematocrit 40.3 % (37.0-53.0); Hemoglobin 13.6 g/dL (13.5-17.5); IMMATURE GRAN ABSOLUTE AUTO 0.02 K/mm3 (0.00-0.10); IMMATURE GRAN PERCENT AUTO 0 % (0-1); LYMPHOCYTES ABSOLUTE AUTO 1.02 K/mm3 (0.84-5.20); LYMPHOCYTES PERCENT AUTO 17 % (21-46); MONOCYTES PERCENT AUTO 14 % (4-13); Mean Corpuscular HGB 28.3 pg (26.0-34.0); Mean Corpuscular HGB Conc 33.7 g/dL (31.5-36.5); Mean Corpuscular Volume 84 fL (80-100); Mean Platelet Volume 8.6 fL (9.1-12.4); NEUTROPHILS ABSOLUTE AUTO 3.94 K/mm3 (1.96-9.15); NEUTROPHILS PERCENT AUTO 66 % (41-73); Platelet Count 199 K/mm3 (150-400); RDW Coefficient Variation 13.5 % (11.7-14.2); RDW Standard Deviation 41.7 fL (35.1-46.3); Red Blood Cell Count 4.81 M/mm3 (4.30-5.90); White Blood Cell Count 5.94 K/mm3 (4.00-11.30)
[2022-04-10 04:35] LABS: Albumin, Blood 2.3 g/dL (3.4-5.0); Albumin/Globulin Ratio 0.6 (0.8-1.8); Bilirubin, Total 0.6 mg/dL (0.1-1.0); Bun/Creatinine Ratio 12.4 (12.0-20.0); Calcium, Blood 8.1 mg/dL (8.5-10.1); Creatinine, Blood 0.89 mg/dL (0.60-1.20); Globulin, Blood 3.6 g/dL (2.2-4.0); Magnesium, Blood 1.9 mg/dL (1.6-2.4); Phosphorus, Blood 2.3 mg/dL (2.5-4.9); Potassium, Blood 3.2 mmol/L (3.5-5.5); Total Protein, Blood 5.9 g/dL (6.4-8.2)
--- NOTE | 2022-04-10 05:23 | NUR ---
LOG SKIDDER SUMMARY PT IS ALERT AND COMMUNICATING APPROPRIATELY W STAFF DESPITE HIS VERY GARBLED SPEECH. NEURO UNCHANGED THIS SHIFT AND THE PT HAD NO SEIZURE LIKE ACTIVITY THIS SHIFT. O2 SATS >92% ON RM AIR. BP WNL AND STABLE. TELE SHOWING SR 80's THIS SHIFT. TUBE FEEDINGS RUNNING AT 40ML/HR W PATIENT TOLERATING THEM W NO ISSUES, WILL TITRATE TO GOAL RATE TOLERATED. WILL REPORT TO ONCOMING RN.
--- NOTE | 2022-04-10 18:10 | NUR ---
SHIFT SUMMARY PT A/OX2, CONFUSED AT TIMES AND NEEDING REORIENTATION. PT MAKING REMARKS THAT THE HOSPITAL ROOM IS "MY BEDROOM THAT HAS BEEN REMODELED." PT EASILY REORIENTED. PT COOPERATIVE OF CARE. PT CONTINUOUSLY GARBLED SPEAKING WHEN STAFF IS IN ROOM. VSS THROUGHOUT SHIFT WITH O2 SATS IN THE 90'S WHILE ON RA. PT RECIEVING JEVITY VIA DOBHOFF PER ORDERS. NO REPORT OF CHEST PAIN/PRESSURE THOUGHOUT SHIFT. NO REPORT OF SOB THROUGHOUT SHIFT. PT PULLED CONDOM CATH LOOSE, PT CLEANED AND CONDOM CATH CHANGED. PT SISTER WAS AT BEDSIDE AND INFORMED THIS RN THAT THE PT AT BASELINE IS "VERY WITH IT. HE IS NOT LIKE THIS." SISTER UPDATED ON PT PROGRESS. NO SEIZURE NOTED DURING SHIFT.
[2022-04-11 05:12] LABS: BASOPHILS ABSOLUTE AUTO 0.04 K/mm3 (0.00-0.23); BASOPHILS PERCENT AUTO 1 % (0-2); EOSINOPHILS ABSOLUTE AUTO 0.14 K/mm3 (0.00-0.68); EOSINOPHILS PERCENT AUTO 2 % (0-6); Hemoglobin 14.7 g/dL (13.5-17.5); IMMATURE GRAN ABSOLUTE AUTO 0.03 K/mm3 (0.00-0.10); IMMATURE GRAN PERCENT AUTO 0 % (0-1); LYMPHOCYTES ABSOLUTE AUTO 0.93 K/mm3 (0.84-5.20); LYMPHOCYTES PERCENT AUTO 13 % (21-46); MONOCYTES ABSOLUTE AUTO 0.84 K/mm3 (0.16-1.47); MONOCYTES PERCENT AUTO 12 % (4-13); Mean Corpuscular HGB 28.1 pg (26.0-34.0); Mean Corpuscular HGB Conc 33.4 g/dL (31.5-36.5); Mean Corpuscular Volume 84 fL (80-100); Mean Platelet Volume 8.8 fL (9.1-12.4); NEUTROPHILS ABSOLUTE AUTO 4.97 K/mm3 (1.96-9.15); NEUTROPHILS PERCENT AUTO 72 % (41-73); Platelet Count 212 K/mm3 (150-400); RDW Coefficient Variation 13.5 % (11.7-14.2); RDW Standard Deviation 41.7 fL (35.1-46.3); Red Blood Cell Count 5.24 M/mm3 (4.30-5.90); White Blood Cell Count 6.95 K/mm3 (4.00-11.30)
[2022-04-11 05:31] LABS: Albumin, Blood 2.4 g/dL (3.4-5.0); Albumin/Globulin Ratio 0.6 (0.8-1.8); Bilirubin, Total 0.5 mg/dL (0.1-1.0); Bun/Creatinine Ratio 12.7 (12.0-20.0); Calcium, Blood 8.8 mg/dL (8.5-10.1); Creatinine, Blood 0.79 mg/dL (0.60-1.20); Magnesium, Blood 1.6 mg/dL (1.6-2.4); Phosphorus, Blood 4.3 mg/dL (2.5-4.9); Potassium, Blood 4.1 mmol/L (3.5-5.5); Total Protein, Blood 6.4 g/dL (6.4-8.2)
--- NOTE | 2022-04-11 06:38 | NUR ---
NOC SHIFT SUMMARY PT ORIENTED X2 OVERNIGHT, HALLUCINATIONS NOTED AND LABILE MOOD AT TIMES. L PO DROOP, GAZE DEVIATION, AND L SIDED WEAKNESS. DR. BRENNAN NOTIFIED OF ABOVE. ORDERS FOR PO MELATONIN RECEIVED. NO FURTHER ORDERS. TF RUNNING PER PROVIDER ORDER, CONDOM CATH IN PLACE. VSS PER PT TREND, ON RA. SR ON TELEMETRY. WILL PASS ON TO DAY RN
--- NOTE | 2022-04-11 18:38 | NUR ---
SHIFT SUMMARY PT A/OX 3-4 AND COOPERATIVE OF CARE. PT MENTATION IS GETTING BETTER. PT IS ABLE TO CARRY ON APPROPIATE CONVERSATIONS AND ANSWER ORIENTATION QUESTIONS. LEFT SIDE DEFICIT STILL PRESENT. RIGHT SIDE GAZE IMPROVING. VSS THROUGHOUT SHIFT WITH 02 SATS IN THE 90'S ON RA. NO REPORT OF CHEST PAIN/PRESSURE THROUGHOUT SHIFT. NO REPORT OF SOB THROUGHOPOUT SHIFT. TUBE FEED STILL RUNNING T GOAL RATE OF 55 PER ORDER. PT WAS HEARD CALLING OUT FOR HELP TOWARDS END OF SHIFT. ONCE ENTERING, PT STATED "MY LEFT ARM IS STARTING TO DO THE SHAKING THING. THIS IS WHAT HAPPENS BEFORE I HAVE A SIEZURE." PT TONO STARTED EARLY AND NOTIFIED. NO FURTHURE ORDERS AT THIS TIME.
[2022-04-12 04:27] LABS: Bun/Creatinine Ratio 16.9 (12.0-20.0); Calcium, Blood 8.9 mg/dL (8.5-10.1); Creatinine, Blood 0.77 mg/dL (0.60-1.20); Magnesium, Blood 2.1 mg/dL (1.6-2.4); Phosphorus, Blood 3.2 mg/dL (2.5-4.9); Potassium, Blood 4.1 mmol/L (3.5-5.5)
--- NOTE | 2022-04-12 06:28 | NUR ---
NOC SHIFT SUMMARY PT SLEPT LITTLE OVERNIGHT. ORIENTED X3-4 W/SOME HALLUCINATIONS. L PO DROOP AND L SIDED WEAKNESS. R GAZE DEVIATION. THINKING HE WAS AT HIS GIRLFRIENDS HOUSE WHEN WAKING UP. PULLED OUT DOBHOFF X1, REPLACED BY PRINT LINE SUPERVISOR - PINA Woods AND VERIFIED PLACEMENT VIA DR. LAKE. TOLERATED FEED WELL. Q2 TURN, SR ON TELEMETRY. VSS PER PT TREND. CONDOM CATH IN PLACE WITH ADEQUATE UOP. WILL PASS ON TO DAY RN.
--- NOTE | 2022-04-12 17:43 | NUR ---
SHIFT SUMMARY; ASSUMED CARE AT 0700. ALERT AND ORIENTED X2-3. INTERMITANT CONFUSION. DOBHOFF IN PLACE WITH CONTINUOUS FEED AT 55. ASSITED TO BEDPAN DURING SHIFT FOR SMALL BM. MINIMAL ASSISTANCE FROM PT. REPORTS LEGS JUST "FLYING UP" WHEN THEY WANT. LEFT LEG APPEARS SLIGHTLY CONTRACTED. CONDOM CATH IN PLACE DRAINING TO GRAVITY. MEPILEX ON COCCYX, Q2 TURNS, NO SEIZURE ACTIVITY DURING SHIFT. WILL CONTINUE TO MONITOR AND TREAT UNTIL CHANGE OF SHIFT.
[2022-04-13 04:41] LABS: BASOPHILS ABSOLUTE AUTO 0.05 K/mm3 (0.00-0.23); BASOPHILS PERCENT AUTO 1 % (0-2); EOSINOPHILS ABSOLUTE AUTO 0.13 K/mm3 (0.00-0.68); EOSINOPHILS PERCENT AUTO 2 % (0-6); Hematocrit 44.2 % (37.0-53.0); Hemoglobin 14.6 g/dL (13.5-17.5); IMMATURE GRAN ABSOLUTE AUTO 0.05 K/mm3 (0.00-0.10); IMMATURE GRAN PERCENT AUTO 1 % (0-1); LYMPHOCYTES ABSOLUTE AUTO 1.08 K/mm3 (0.84-5.20); LYMPHOCYTES PERCENT AUTO 14 % (21-46); MONOCYTES PERCENT AUTO 13 % (4-13); Mean Corpuscular HGB 28.1 pg (26.0-34.0); Mean Corpuscular Volume 85 fL (80-100); Mean Platelet Volume 8.5 fL (9.1-12.4); NEUTROPHILS ABSOLUTE AUTO 5.44 K/mm3 (1.96-9.15); NEUTROPHILS PERCENT AUTO 70 % (41-73); Platelet Count 270 K/mm3 (150-400); RDW Coefficient Variation 13.5 % (11.7-14.2); RDW Standard Deviation 41.9 fL (35.1-46.3); Red Blood Cell Count 5.19 M/mm3 (4.30-5.90); White Blood Cell Count 7.75 K/mm3 (4.00-11.30)
[2022-04-13 04:53] LABS: Bun/Creatinine Ratio 22.4 (12.0-20.0); Calcium, Blood 8.9 mg/dL (8.5-10.1); Creatinine, Blood 0.76 mg/dL (0.60-1.20); Magnesium, Blood 2.1 mg/dL (1.6-2.4); Phosphorus, Blood 3.1 mg/dL (2.5-4.9); Potassium, Blood 4.3 mmol/L (3.5-5.5)
--- NOTE | 2022-04-13 05:41 | NUR ---
SHIFT SUMMARY PATIENT IS ALERT AND ORIENTED X3-4, FOLLOWS COMMANDS. SOME LEFT SIDED WEAKNESS THAT HAS BEEN PRESENT. 02 SATS 96% ON RA, DENIES SOB. HR SR 90s, BP STABLE. DENIES CP/PRESSURE. CONDOM CATH IN PLACE, 1000 MLS OU THIS SHIFT. NO SIEZURES. PATIENT REPOSITIONED Q2 HOURS, BUT REFUSED ONCE. CALL LIGHT IN REACH. NO ACUTE CHANGES.
--- NOTE | 2022-04-13 18:37 | NUR ---
SHIFT SUMMARY PT IS A/Ox3-4 BUT IS ABLE TO REPSOND TO DIRECTIONS GIVEN BY STAFF. DOBHOFF WAS DC'D TODAY AFTER SWALLOW EVAL BY SPEECH THERAPY. PT UPGRADED TO MECH/SOFT DIET WITH MEDS CRUSHED IN PUDDING AND THIN LIQUIDS. PT MAINTAINS SPO2>95 ON RA WITH NO SOB OR DYSPNEA NOTED. PT FREQUENTLY TURNED TO PREVENT SKIN BREAK DOWN. CONDOM CATH IN PLACE, PATENT AND DRAINING TO GRAVITY. NO SIGNS OF SEIZURES T/O THE SHIFT WITH BP/HR STABLE. NADN, VSS T/O THE SHIFT
--- NOTE | 2022-04-14 06:14 | NUR ---
SHIFT SUMMARY PATIENT REMAINS ALERT AND ORIENTED X4, FORGETFUL AT TIMES. 02 SATS >95% ON RA. HR SR 80s, BP STABLE. PATIENT REPOSITIONED Q2 HOURS, HE DID REFUSE AT TIMES. CONDOM CATH IN PLACE AND DRAINING. CALL LIGHT IN REACH AND BED ALARM ON. PATIENT CURRENTLY SLEEPING.
--- NOTE | 2022-04-14 17:39 | NUR ---
SHIFT SUMMARY PT IS A/Ox3-4 AND PT FOLLOWS DIRECTIONS GIVEN BY STAFF. PT WAS STATUS CHANGED AFTER DR. TENORIO SAW PT THIS AM. PT MAINTAINS SPO2 >95% ON RA WITH NO SOB OR DYSPNEA NOTED AT REST. PT'S DIET HAS CONTINUED TO BE UPGRADED PT'S SWALLOWING ABILITY HAS IMPROVED. PLAN OF CARE IS FOR PT TO BE DC'D TO SNIFF, PT PREFERS [facility]. PT HAD BM TODAY AFTER REQUESING LAATIVE SUPPOSITORY. BP AND HR HAVE BEEN STABEL T/O THE SHIFT. NADN, VSS T/O THE SHIFT
--- NOTE | 2022-04-15 05:38 | NUR ---
SHIFT SUMMARY PATIENT IS ALERT AND ORIENTED X4, FORGETFUL AT TIMES. NO NEURO CHANGES. 02 SATS 98% ON RA, HR AND BP STABLE. CONDOM CATH IN PLACE, 900 OUT THIS SHIFT, NO BM. PATIENT REPOSITIONED Q2 HOURS. CALL LIGHT IN REACH.
--- NOTE | 2022-04-15 17:04 | NUR ---
SHIFT SUMMARY PT IS A/Ox3-4 AND FOLLOWS DIRECTIONS FROM STAFF. 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 PT MAINTAINS SPO2 >95 ON RA WITH NO SIGNS OF SOB OR DYSPNEA AT REST. POWERGLIDE DRESSING CHANGED TODAY WITH STERILE TECHNIQUE MAINTAINED T/O THE PROCEDURE. PT DID EXTENSIVE WORK WITH OT TODAY AND HIS MOBILITY HAS SIGNIFICANTLY IMPROVED. DR. TENORIO SPOKE WITH CASE MANAGEMENT WELL PT ABOOUT FINDING PLACEMENT FOR PT UPON DC. GRACIELA VERMA T/O MY SHIFT
--- NOTE | 2022-04-16 05:13 | NUR ---
NO ACUTE EVENTS OVERNIGHT. PT REPORTS THAT HE SLEPT WELL AND FEELS MORE RESTED. CONTRACTUER TO LEFT KNEE PERSISTS. ABLE TO STRAIGHTEN SOME WITH RANGE OF MOTION EXERCISES. ARTIFICIAL BREEDING RANCH SUPERVISOR STRENGTH IS EQUAL IN BOTH HANDS, BUT FINE MOTOR SKILLS ARE IMPAIRED IN THE LEFT HAND. SCLERA OF BOTH EYES IS RED, PATIENT DENIES PAIN, DISCOMFORT, AND DRYNESS.
[2022-04-16 08:52] LABS: SARS-Cov-2 (COVID-19) PCR, MMC NEGATIVE (NEGATIVE)
[2022-04-16] MEDS ORDERED: BENZ100A PO (10:54)
[2022-04-16] MEDS ORDERED: LACO50TA2 PO (10:54)
[2022-04-16] MEDS ORDERED: LEVE500 PO (10:54)
[2022-04-16] MEDS ORDERED: LACT PO (10:55)
--- NOTE | 2022-04-16 12:15 | NUR ---
REPORT CALLED TO CYNTHIA AT [facility]
== END 2022-04-16 12:50 | DRG 101 ==
LOC: ER 10:19 → PCU 16:03
PROVIDERS: Family Medicine; Internal Medicine; Physician Assistant; ADMIT Family Medicine
PROC: 0DH67UZ Insertion of Feeding Device into Stomach, Via Natural or Artificial Opening (ICD-10-PCS; principal; 2022-04-06)
DX: G40.901 Epilepsy, unspecified, not intractable, with status epilepticus (principal); N39.0 Urinary tract infection, site not specified; T17.928A Food in respiratory tract, part unspecified causing other injury, initial encounter; D32.0 Benign neoplasm of cerebral meninges; I10 Essential (primary) hypertension; Z20.822 Contact with and (suspected) exposure to COVID-19; B37.9 Candidiasis, unspecified; Z66 Do not resuscitate; N40.0 Benign prostatic hyperplasia without lower urinary tract symptoms; Z98.890 Other specified postprocedural states; Z88.1 Allergy status to other antibiotic agents; Z79.899 Other long term (current) drug therapy; Z79.811 Long term (current) use of aromatase inhibitors
CPT/HCPCS: 0241U; 36415; 51703; 70450; 70553; 71045; 80048; 80053; 81001; 82550; 82553; 82803; 82947; 83605; 83735; 84100; 84145; 85025; 85610; 87040; 87086; 92526; 92610; 93005; 93010; 94762; 95819; 96361-59; 96365-59; 96375-59; 97110; 97112; 97162; 97166; 97530; 97535; 99285-25; A9270; A9579; C1751; C9254; J0696; J1165; J1650; J1953; J2060; J3480; J7030; J7042; J7050; J7060; U0004

== ENCOUNTER 2022-11-05 21:36 | Inpatient (IN) | payer MEDICARE ==
[~2022-11-05] VITALS: Ht 165.1 cm; Wt 55.7 kg
[~2022-11-05 21:36] MED LIST changes: +BENZ100A PO; +KEPPRA1000 M2 PO; +LACOSAMIDE100 MG PO; +LACT PO
[2022-11-05 21:57] LABS: BASOPHILS ABSOLUTE AUTO 0.06 K/mm3 (0.00-0.23); BASOPHILS PERCENT AUTO 0 % (0-2); EOSINOPHILS ABSOLUTE AUTO 0.08 K/mm3 (0.00-0.68); EOSINOPHILS PERCENT AUTO 1 % (0-6); Hematocrit 50.6 % (37.0-53.0); Hemoglobin 17.1 g/dL (13.5-17.5); IMMATURE GRAN ABSOLUTE AUTO 0.05 K/mm3 (0.00-0.10); IMMATURE GRAN PERCENT AUTO 0 % (0-1); LYMPHOCYTES ABSOLUTE AUTO 1.24 K/mm3 (0.84-5.20); LYMPHOCYTES PERCENT AUTO 8 % (21-46); MONOCYTES ABSOLUTE AUTO 1.03 K/mm3 (0.16-1.47); MONOCYTES PERCENT AUTO 7 % (4-13); Mean Corpuscular HGB 31.1 pg (26.0-34.0); Mean Corpuscular HGB Conc 33.8 g/dL (31.5-36.5); Mean Corpuscular Volume 92 fL (80-100); Mean Platelet Volume 8.7 fL (9.1-12.4); NEUTROPHILS ABSOLUTE AUTO 12.28 K/mm3 (1.96-9.15); NEUTROPHILS PERCENT AUTO 83 % (41-73); Platelet Count 287 K/mm3 (150-400); RDW Coefficient Variation 13.1 % (11.7-14.2); RDW Standard Deviation 44.5 fL (35.1-46.3); Red Blood Cell Count 5.49 M/mm3 (4.30-5.90); White Blood Cell Count 14.74 K/mm3 (4.00-11.30)
[2022-11-05 22:14] LABS: Albumin/Globulin Ratio 0.7 (0.8-1.8); Bilirubin, Total 0.5 mg/dL (0.1-1.0); Bun/Creatinine Ratio 25.9 (12.0-20.0); Calcium, Blood 9.2 mg/dL (8.5-10.1); Creatinine, Blood 0.81 mg/dL (0.60-1.20); Globulin, Blood 4.2 g/dL (2.2-4.0); Potassium, Blood 4.7 mmol/L (3.5-5.5); Total Protein, Blood 7.2 g/dL (6.4-8.2)
[2022-11-06] LABS: Influenza A, PCR NEGATIVE (NEGATIVE); Influenza B, PCR NEGATIVE (NEGATIVE); Resp Syncytial Virus, PCR NEGATIVE (NEGATIVE); SARS-Cov-2 (COVID-19) PCR, MMC NEGATIVE (NEGATIVE)
[2022-11-06 00:47] LABS: Source, Urine Foley catheter
[2022-11-06 01:09] LABS: Appearance, Urine Cloudy (Clear); Bilirubin, Urine Neg (Neg); Blood, Urine 5+ (Neg); Glucose Qualitative, Urine Neg (Neg); Ketones, Urine Neg (Neg); Leukocyte Esterase, Urine 2+ (Neg); Nitrite, Urine Neg (Neg); Protein, Urine 3+ (Neg); Urobilinogen, Urine NORM (Normal)
[2022-11-06 01:35] LABS: Color, Urine Orange (P-Yellow)
[2022-11-06 01:35] LABS: International Normalized Ratio 0.99; Prothrombin Time Results 10.4 Sec (9.7-11.5)
[2022-11-06 01:37] LABS: Bacteria Mod /hpf; Red Blood Cells, Urine TNTC /hpf (0-2); Squamous Epithelial Cells Not Seen /hpf (Few)
[2022-11-06 02:45] VITALS: BP 122/68
--- NOTE | 2022-11-06 02:55 | NUR ---
ASSUMED CARE PATIENT ARRIVED FROM ED VIA STRETCHER. PATIENT IS LETHARGIC DOES SHOUT OUT. NOT OPENING EYES ON COMMAND. L SIDE WEAKNESS. DID FOLLOW COMMAND ON R SIDE. VS STABLE UPON ARRIVAL. NS INFUSING AT 200ML/HR. CONDOM CATH IN PLACE TO GRAVITY. REDNESS TO COCCY, ALLEVYN APPLIED. FRAIL SKIN, GENERALIZED BRUISING. NO FAMILY AT BEDSIDE. SEIZURE PADS IN PLACE.
[2022-11-06 03:25] LABS: BASOPHILS ABSOLUTE AUTO 0.04 K/mm3 (0.00-0.23); BASOPHILS PERCENT AUTO 0 % (0-2); EOSINOPHILS ABSOLUTE AUTO 0.01 K/mm3 (0.00-0.68); EOSINOPHILS PERCENT AUTO 0 % (0-6); Hematocrit 44.4 % (37.0-53.0); IMMATURE GRAN ABSOLUTE AUTO 0.05 K/mm3 (0.00-0.10); IMMATURE GRAN PERCENT AUTO 0 % (0-1); LYMPHOCYTES ABSOLUTE AUTO 0.64 K/mm3 (0.84-5.20); LYMPHOCYTES PERCENT AUTO 5 % (21-46); MONOCYTES ABSOLUTE AUTO 0.91 K/mm3 (0.16-1.47); MONOCYTES PERCENT AUTO 7 % (4-13); Mean Corpuscular HGB 31.3 pg (26.0-34.0); Mean Corpuscular HGB Conc 33.8 g/dL (31.5-36.5); Mean Corpuscular Volume 93 fL (80-100); Mean Platelet Volume 8.8 fL (9.1-12.4); NEUTROPHILS ABSOLUTE AUTO 11.12 K/mm3 (1.96-9.15); NEUTROPHILS PERCENT AUTO 87 % (41-73); Platelet Count 187 K/mm3 (150-400); RDW Coefficient Variation 13.2 % (11.7-14.2); RDW Standard Deviation 44.6 fL (35.1-46.3); White Blood Cell Count 12.77 K/mm3 (4.00-11.30)
[2022-11-06 03:52] LABS: Albumin, Blood 2.3 g/dL (3.4-5.0); Albumin/Globulin Ratio 0.7 (0.8-1.8); Bilirubin, Total 0.5 mg/dL (0.1-1.0); Bun/Creatinine Ratio 24.7 (12.0-20.0); Calcium, Blood 8.1 mg/dL (8.5-10.1); Creatinine, Blood 0.77 mg/dL (0.60-1.20); Globulin, Blood 3.2 g/dL (2.2-4.0); Potassium, Blood 4.1 mmol/L (3.5-5.5); Total Protein, Blood 5.5 g/dL (6.4-8.2)
[2022-11-06 04:11] VITALS: BP 98/67
--- NOTE | 2022-11-06 06:30 | NUR ---
SHIFT SUMMARY PATIENT CONTINUES TO BE POSTICTAL, HOWEVER IS SLOWING BECOMING MORE ALERT. VS STABLE. SEIZURES PADS IN PLACE, BED ALARM ACTIVE.
[2022-11-06 07:12] VITALS: BP 104/52
--- NOTE | 2022-11-06 11:28 | NUR ---
PATIENT PRESENTING WITH OBSTRUCTIVE SLEEP APNEA. EPISODE WHERE PATIENT DESATS TO 50'S. ARCHITECTURAL MODELER JAW THRUST AND PATIENT RECOVERED WITHIN 1 MIN. THIS RN CALLED RT. RT TO BEDSIDE. DR. DUNAWAY CALLED. BIPAP/CPAP PROTOCOL ORDERED, RT AT BEDSIDE WITH CPAP. NEW ORDERS FOR THIS RN TO PLACE ALSO INCLUDED STAT LACTIC ACID AND VBG. ORDERS IN PLACE.
[2022-11-06 11:45] VITALS: BP 100/66
[2022-11-06 12:03] LABS: Base Excess Venous -3.1 mmol/L; Bicarbonate Venous 22.1 mmol/L (24.0-30.0); PCO2 Venous 35.3 mmHg (38-42)
[2022-11-06] MEDS ORDERED: METAMUCIL POWD798 GM PO (12:18)
[2022-11-06] MEDS ORDERED: MIRT15 PO (12:20)
[2022-11-06] MEDS ORDERED: DOCU100 PO (12:23)
[2022-11-06] MEDS ORDERED: LACO50TA2 PO (12:25)
[2022-11-06] MEDS ORDERED: Acetaminophen650 M1 PO (12:28)
[2022-11-06] MEDS ORDERED: POLYMYXIN B-TMP10 ML BOTHEYES (12:28)
[2022-11-06] MEDS ORDERED: ADULT GLYCERIN1 EACH PR (12:29)
[2022-11-06] MEDS ORDERED: SENN187 PO (12:30)
--- NOTE | 2022-11-06 13:21 | NUR ---
DR. DUNAWAY CALLED AND UPDATED. PATIENT AWAKE AND ABLE TO PASS BESIDE SWALLOW EVAL. ORDERS FOR THIS RN TO PLACE [facility] SOFT DIET. BLADDER SCAN COMPLETED SHOWING 276 ML. PATIENT ABLE TO VOID 125 ML POST BLADDER SCAN. PLAN TO DO A POST VOID RESIDUAL. MED REC COMPLETED AND DR. DUNAWAY AWARE.
[2022-11-06 16:00] VITALS: BP 97/60
--- NOTE | 2022-11-06 18:48 | NUR ---
PT A&OX4, CONFUSED AT TIMES. PT'S EYES ARE RED/CRUSTY, HAS EYE DROPS. PT DOES NOT HAVE DENTURES OR HEARING AIDS. PT HAS APPROX 5 OF HIS OWN TEETH IN HIS MOUTH, THE REST ARE GONE. BEDSIDE RN SWALLOW PERFORMED BY GHADA BERNSTEIN, PT PASSED, AND ORDERED SOFT/PUREED DIET. PTS LUNGS CLEAR BUT DIMINISHED AT BASES. HR SR 60'S. SEIZURE PRECAUTIONS IN PLACE. L SIDE WEAKNESS/STIFFNESS OF EXTREMITIES. PT CONTINENT OF URINE, USES URINAL, INCONTINENT OF STOOL, ONE BOWEL MOVEMENT THIS SHIFT. PT'S O2 SATURATION DOWN INTO 50'S DURING SLEEP, OBSTRUCTIVE SLEEP APNEA. RESPIRATORY THERAPIST CONSULTED WITH PT, NOW ON BIPAP DURING SLEEP. PT'S SISTER CAME TO VISIT FOR A FEW HOURS TODAY. PT RESTING IN BED, TV ON, CALL LIGHT WITHIN REACH.
--- NOTE | 2022-11-06 18:58 | NUR ---
THIS RN HAS REVIEWED ALL STUDENT NURSING DOCUMENTATION. TELE SHOWING SR, NO TELE EVENTS THIS SHIFT. BLADDER SCAN PRN. POST VOID SCAN SHOWING 55 ML. Q2 TURNING. Q4 ORAL CARE.
[2022-11-06 19:58] VITALS: BP 103/65
[2022-11-07] VITALS (7 sets, daily range): BP systolic 102–121; BP diastolic 65–75
--- NOTE | 2022-11-07 05:29 | NUR ---
END OF SHIIFT PT VSS, INCONTINENT OF B&B, BED BATH GIVEN, REFUSED BIPAP BUT ONLY HAD 2 NOTED PERIODS OF APNEA AND DESATTING INTO THE 60'S AND 70'S, BOTH OF WHICH HE RECOVERED QUICKLY
[2022-11-07 06:02] LABS: BASOPHILS ABSOLUTE AUTO 0.05 K/mm3 (0.00-0.23); BASOPHILS PERCENT AUTO 1 % (0-2); EOSINOPHILS ABSOLUTE AUTO 0.13 K/mm3 (0.00-0.68); EOSINOPHILS PERCENT AUTO 2 % (0-6); Hematocrit 39.6 % (37.0-53.0); Hemoglobin 13.3 g/dL (13.5-17.5); IMMATURE GRAN ABSOLUTE AUTO 0.03 K/mm3 (0.00-0.10); IMMATURE GRAN PERCENT AUTO 1 % (0-1); LYMPHOCYTES ABSOLUTE AUTO 1.14 K/mm3 (0.84-5.20); LYMPHOCYTES PERCENT AUTO 18 % (21-46); MONOCYTES ABSOLUTE AUTO 0.59 K/mm3 (0.16-1.47); MONOCYTES PERCENT AUTO 9 % (4-13); Mean Corpuscular HGB 31.2 pg (26.0-34.0); Mean Corpuscular HGB Conc 33.6 g/dL (31.5-36.5); Mean Corpuscular Volume 93 fL (80-100); Mean Platelet Volume 9.1 fL (9.1-12.4); NEUTROPHILS ABSOLUTE AUTO 4.52 K/mm3 (1.96-9.15); NEUTROPHILS PERCENT AUTO 70 % (41-73); Platelet Count 175 K/mm3 (150-400); RDW Coefficient Variation 13.3 % (11.7-14.2); RDW Standard Deviation 44.8 fL (35.1-46.3); Red Blood Cell Count 4.26 M/mm3 (4.30-5.90); White Blood Cell Count 6.46 K/mm3 (4.00-11.30)
[2022-11-07 06:23] LABS: Albumin, Blood 2.1 g/dL (3.4-5.0); Albumin/Globulin Ratio 0.7 (0.8-1.8); Bilirubin, Total 0.5 mg/dL (0.1-1.0); Bun/Creatinine Ratio 25.3 (12.0-20.0); Creatinine, Blood 0.63 mg/dL (0.60-1.20); Globulin, Blood 2.9 g/dL (2.2-4.0); Potassium, Blood 3.6 mmol/L (3.5-5.5)
--- NOTE | 2022-11-07 07:50 | NUR ---
ASSUMED CARE: ASSUMED CARE OF PT APPROX 0715. PT A&OX4. BP STABLE. HR 70'S. NORMAL SINUS RHYTHM. PT DENIES CHEST PAIN/PRESSURE. O2 SATS >95% ON ROOM AIR. PT DENIES SOB. APPROX 0800 PT STATES "I FEEL LIKE I AM ABOUT TO HAVE A SEIZURE". LESLIE BERNSTEIN AND PROFESSOR OF FRENCHLESLIE GALLARDO TO BEDSIDE WITH THIS SN. KEPPRA STARTED INFUSING PER EMAR. VSS. SEIZURE PADS ON BED. HOLDING OFF ON BREAKFAST AT THIS TIME. WILL CONTINUE TO MONITOR PT.
--- NOTE | 2022-11-07 08:51 | NUR ---
PT UPDATE: FOLLOWING KEPPRA INFUSION, PT STATES "ALL OF MY SYMPTOMS HAVE DISAPPEARED". SEIZURE PADS STILL IN PLACE. VIMPAT NOW INFUSING PER EMAR. PT RESTING IN BED. CALL LIGHT WITHIN REACH.
--- NOTE | 2022-11-07 18:02 | NUR ---
SHIFT SUMMARY: PT A&OX4. ABLE TO MAKE NEEDS KNOWN. HR 70'S. NORMAL SINUS RHYTHM. SBP 110'S-120'S. PT DENIES CP/PRESSURE. SPO2 >95% ON RA. DENIES SOB. SEIZURE PRECAUTIONS IN PLACE. APPROX 0800 PT REPORTED FEELING LIKE HE WAS ABOUT TO HAVE A SEIZURE. MEDICATED WITH KEPPRA AND VIMPAT PER EMAR. PT REPORTED THAT THE FEELING OF A SEIZURE RESOLVED FOLLOWING INFUSION OF MEDICATION. PT ABLE TO VOID IN URINAL WITH ASSISTANCE. 1 INCONTINENT VOID TODAY. NO BM'S THIS SHIFT. BED BATH GIVEN THIS AM. REPOSITIONED Q2 HRS. ORAL CARE PROVIDED. BLANCHABLE REDNESS ABOUT THE COCCYX. MEPELEX CHANGED THIS AM. PT RESTING IN BED. CALL LIGHT WITHIN REACH. NO FURTHER NEEDS AT THIS TIME.
--- NOTE | 2022-11-07 18:27 | NUR ---
This RN has reviewed and agrees with all nursing home aide documentation.
[2022-11-08 05:39] VITALS: BP 136/72
--- NOTE | 2022-11-08 05:52 | NUR ---
NO CHANGES IN STATUS OVERNIGHT WITH THE EXCEPTION OF 2LPM NC FOR BRIEF BUT FREQUENT PERIODS OF DESATURATION INTO THE 70'S
[2022-11-08 08:22] VITALS: BP 111/77
[2022-11-08 11:18] VITALS: BP 125/74
--- NOTE | 2022-11-08 14:57 | NUR ---
MEDICAL STATUS NO TELE. 2 PERSON ASSIST TO STAND/PIVOT TO RECLINER. PATIENT CURRENTLY IN RECLINER WATCHING TV. DENIES PAIN AT THIS TIME. SATING 100% ON ROOM AIR. PATIENT ENCOURAGED BY DR. MOSQUEDA TO WEAR CPAP TONIGHT. RESPIRATORY AWARE AND ORDERS IN PLACE.
[2022-11-08 15:10] VITALS: BP 115/70
--- NOTE | 2022-11-08 17:58 | NUR ---
SHIFT SUMMARY: NO ACUTE CHANGES, SEE PREVIOUS NOTES. PATIENT REMAINS ALERT AND ORIENTED. ON ROOM AIR. NO TELE, MEDICAL STATUS. WILLING TO TRY CPAP TONIGHT, RESP IN TO SET UP CPAP MACHINE. EATING DINNER AT THIS TIME. USING URINAL. UP TO RECLINER THIS SHIFT FOR 2 HOURS.
[2022-11-08 20:00] VITALS: BP 107/73
[2022-11-09 02:09] VITALS: BP 134/83
--- NOTE | 2022-11-09 05:26 | NUR ---
END OF SHIFT PT WORE CPAP FOR 3 HRS, AFTER REMOVING MASK HE DESATTED 2 DIFFERENT TIMES BOTH OF WHICH HE RECOVERED FROM QUICKLY, REFUSED TO PUT THE CPAP BACK ON, OTHERWISE NO ISSUES OVERNIGHT
--- NOTE | 2022-11-09 07:17 | NUR ---
ASSUMED CARE: PT IS MED STATUS NO TELE. RESTING QUIETLY IN BED, TAX REPRESENTATIVE AT BEDSIDE. NO ACUTE NEEDS OR CONCERNS AT THIS TIME.
[2022-11-09 08:06] VITALS: BP 122/85
[2022-11-09] MEDS ORDERED: Diflucan100 MG PO (10:34)
--- NOTE | 2022-11-09 13:09 | NUR ---
[facility] ARRIVED TO COLLECT PT VIA WHEELCHAIR. PT TAKEN BACK TO [facility]. REPORT CALLED TO FACILITY REGARDING PT STATUS. IV DC'D WNL. NO FURTHER NEEDS OR CONCERNS AT TIME OF DISCHARGE
== END 2022-11-09 13:08 | disposition home or self-care (01) | DRG 100 ==
LOC: ER 21:36 → PCU 11-06 00:50 → ERHOLD 11-06 00:50 → PCU 11-06 02:28
PROVIDERS: Emergency Medicine; Internal Medicine; ADMIT Internal Medicine
PROC: 5A09357 Assistance with Respiratory Ventilation, Less than 24 Consecutive Hours, Continuous Positive Airway Pressure (ICD-10-PCS; principal; 2022-11-06)
PROC: 3E03329 Introduction of Other Anti-infective into Peripheral Vein, Percutaneous Approach (ICD-10-PCS; 2022-11-06)
DX: G40.901 Epilepsy, unspecified, not intractable, with status epilepticus (principal); A41.9 Sepsis, unspecified organism; E87.20 Acidosis, unspecified; B37.41 Candidal cystitis and urethritis; Z66 Do not resuscitate; N40.1 Benign prostatic hyperplasia with lower urinary tract symptoms; N39.498 Other specified urinary incontinence; I10 Essential (primary) hypertension; G47.33 Obstructive sleep apnea (adult) (pediatric); R09.02 Hypoxemia; Z20.822 Contact with and (suspected) exposure to COVID-19; Z86.011 Personal history of benign neoplasm of the brain; Z98.890 Other specified postprocedural states; Z92.3 Personal history of irradiation; Z88.8 Allergy status to other drugs, medicaments and biological substances; Z79.899 Other long term (current) drug therapy; Z88.1 Allergy status to other antibiotic agents
CPT/HCPCS: 0241U; 36415; 70450; 71045; 80053; 80177; 81001; 82803; 83605; 83735; 83880; 85025; 85610; 87040; 87086; 93005; 93010; 94660; 94762; 96365; 96367; 99285-25; A9270; C9254; J0696; J1650; J1953; J2060; J2543; J7030

== ENCOUNTER 2023-03-04 04:40 | Inpatient (IN) | payer MEDICARE, OTHER ==
[~2023-03-04] VITALS: Ht 160 cm; Wt 46.2 kg
[~2023-03-04 04:40] MED LIST changes: +ABILIFY MYCITE5 M2 PO; +ADULT GLYCERIN1 EACH PR; +Acetaminophen650 M1 PO; +DOCU100 PO; +Diflucan100 MG PO; +LACO50TA2 PO; +METAMUCIL POWD798 GM PO; +MIRT15 PO; +POLYMYXIN B-TMP10 ML BOTHEYES; +PRED20 PO; +SENN187 PO
[2023-03-04 05:22] LABS: BASOPHILS ABSOLUTE AUTO 0.03 K/mm3 (0.00-0.23); BASOPHILS PERCENT AUTO 0 % (0-2); EOSINOPHILS ABSOLUTE AUTO 0.12 K/mm3 (0.00-0.68); EOSINOPHILS PERCENT AUTO 1 % (0-6); Hematocrit 44.5 % (37.0-53.0); Hemoglobin 15.1 g/dL (13.5-17.5); IMMATURE GRAN ABSOLUTE AUTO 0.03 K/mm3 (0.00-0.10); IMMATURE GRAN PERCENT AUTO 0 % (0-1); LYMPHOCYTES ABSOLUTE AUTO 0.89 K/mm3 (0.84-5.20); LYMPHOCYTES PERCENT AUTO 9 % (21-46); MONOCYTES PERCENT AUTO 6 % (4-13); Mean Corpuscular HGB 31.1 pg (26.0-34.0); Mean Corpuscular HGB Conc 33.9 g/dL (31.5-36.5); Mean Corpuscular Volume 92 fL (80-100); Mean Platelet Volume 9.4 fL (9.1-12.4); NEUTROPHILS ABSOLUTE AUTO 8.27 K/mm3 (1.96-9.15); NEUTROPHILS PERCENT AUTO 83 % (41-73); Platelet Count 271 K/mm3 (150-400); RDW Coefficient Variation 13.5 % (11.7-14.2); Red Blood Cell Count 4.85 M/mm3 (4.30-5.90); White Blood Cell Count 9.94 K/mm3 (4.00-11.30)
[2023-03-04 05:31] LABS: Influenza A, PCR NEGATIVE (NEGATIVE); Influenza B, PCR NEGATIVE (NEGATIVE); Resp Syncytial Virus, PCR NEGATIVE (NEGATIVE); SARS-Cov-2 (COVID-19) PCR, MMC NEGATIVE (NEGATIVE)
[2023-03-04 05:34] LABS: Albumin, Blood 2.8 g/dL (3.4-5.0); Albumin/Globulin Ratio 0.7 (0.8-1.8); Bilirubin, Total 0.5 mg/dL (0.1-1.0); Bun/Creatinine Ratio 23.6 (12.0-20.0); Calcium, Blood 9.1 mg/dL (8.5-10.1); Creatinine, Blood 0.89 mg/dL (0.60-1.20); Magnesium, Blood 1.9 mg/dL (1.6-2.4); Potassium, Blood 4.1 mmol/L (3.5-5.5); Total Protein, Blood 6.8 g/dL (6.4-8.2)
[2023-03-04 07:38] LABS: Base Excess Venous 0.9 mmol/L; Bicarbonate Venous 24.3 mmol/L (24.0-30.0); PCO2 Venous 45.4 mmHg (38-42); pH Blood Venous 7.37 (7.34-7.37)
[2023-03-04 09:32] VITALS: BP 106/65
--- NOTE | 2023-03-04 14:41 | NUR ---
PT ADMITTED TO ROOM 346 FROM ED AT 0900- GOURNEY TO BED SLIDE TX. PT HAVING DIFFICULTY CLEARING SECRETIONS, AUDIBLE COARSE LUNG SOUNDS, SECRETIONS STUCK IN THROAT. SUCTION SET UP FIRST THING AND DEEP YANKAUR SUCTION CLEARED AIRWAY AND PT ABLT TO BREATH WITH GREATER EASE, RR 24-28- PT ORIENTED TO SAFETY, FALL PRECAUTIONS AND CALL LIGHT. ATTENDS DRY. SKIN CHECKED, INTACT. OXYGEN 3L, SATS 94-96%.
[2023-03-04] MEDS ORDERED: DIAZEPAM RECTAL GEL PR (16:13)
[2023-03-04] MEDS ORDERED: ARTIFICIAL TEAR15 M2 BOTHEYES (16:19)
[2023-03-04] MEDS ORDERED: CASTOR OIL PO (16:20)
[2023-03-04] MEDS ORDERED: Tobrex5 ML BOTHEYES (16:26)
--- NOTE | 2023-03-04 16:27 | NUR ---
MED REC FROM [facility] REQUESTED AND RECEIVED VIA FAX. UPDATED MED REC.
[2023-03-04 16:36] VITALS: BP 101/48
--- NOTE | 2023-03-04 18:35 | NUR ---
SUMMARY- PT HAS BECOME MORE ALERT THROUGHOUT THE SHIFT. TOOK HIS OXYGEN OFF, WHEN CHECKED SAT ON ROOM AIR WAS 97% AT 1800. PT HAS BEEN COUGHING UP MOD AMOUNT OF YELLOW AND CLEARING ENOUGH TO SWALLOW SECRETIONS, LUNGS SOUND CLEAR PRESENTLY. PT FAILED SWALLOW EVAL EARLIER IN THE SHIFT WHEN HE HAD MORE SECRETIONS. IVF INFUSING. PT WAS INCONT OF URINE ONCE AND USED URINAL ONCE. PT'S SISTER CAME IN TO VISIT AND LEFT CONTACT INFO ON BOARD. SHE CONFIRMED THAT PT'S POLST STANDS AND PT IS A DNR. WILL REPORT TO NOC SHIFT.
[2023-03-04 19:26] VITALS: BP 97/47
[2023-03-05 04:13] VITALS: BP 110/70
--- NOTE | 2023-03-05 04:27 | NUR ---
SHIFT SUMMARY PATIENT ALERT, IRRITABLE AT TIMES. DENIES PAIN NOR DISCOMFORT EXCEPT WHEN REPOSITIONING. INTERMITTANT PRODUCTIVE COUGH. DENIES SOB NOR DIFFICULTY BREATHING. MAINTAINING SPO2 >90% ON RA THROUGHOUT SHIFT. NO ACUTE CHANGES OVERNIGHT. BED LOW, CALL LIGHT WITHIN REACH.
[2023-03-05 05:05] LABS: BASOPHILS ABSOLUTE AUTO 0.04 K/mm3 (0.00-0.23); BASOPHILS PERCENT AUTO 1 % (0-2); EOSINOPHILS ABSOLUTE AUTO 0.14 K/mm3 (0.00-0.68); EOSINOPHILS PERCENT AUTO 3 % (0-6); Hematocrit 36.5 % (37.0-53.0); Hemoglobin 12.2 g/dL (13.5-17.5); IMMATURE GRAN ABSOLUTE AUTO 0.03 K/mm3 (0.00-0.10); IMMATURE GRAN PERCENT AUTO 1 % (0-1); LYMPHOCYTES ABSOLUTE AUTO 1.01 K/mm3 (0.84-5.20); LYMPHOCYTES PERCENT AUTO 19 % (21-46); MONOCYTES ABSOLUTE AUTO 0.52 K/mm3 (0.16-1.47); MONOCYTES PERCENT AUTO 10 % (4-13); Mean Corpuscular HGB Conc 33.4 g/dL (31.5-36.5); Mean Corpuscular Volume 93 fL (80-100); Mean Platelet Volume 9.4 fL (9.1-12.4); NEUTROPHILS ABSOLUTE AUTO 3.48 K/mm3 (1.96-9.15); NEUTROPHILS PERCENT AUTO 67 % (41-73); Platelet Count 185 K/mm3 (150-400); RDW Coefficient Variation 13.6 % (11.7-14.2); RDW Standard Deviation 46.5 fL (35.1-46.3); Red Blood Cell Count 3.93 M/mm3 (4.30-5.90); White Blood Cell Count 5.22 K/mm3 (4.00-11.30)
[2023-03-05 05:25] LABS: Albumin, Blood 2.1 g/dL (3.4-5.0); Albumin/Globulin Ratio 0.7 (0.8-1.8); Bilirubin, Total 0.6 mg/dL (0.1-1.0); Bun/Creatinine Ratio 32.1 (12.0-20.0); Calcium, Blood 8.1 mg/dL (8.5-10.1); Creatinine, Blood 0.72 mg/dL (0.60-1.20); Globulin, Blood 3.2 g/dL (2.2-4.0); Potassium, Blood 3.7 mmol/L (3.5-5.5); Total Protein, Blood 5.3 g/dL (6.4-8.2)
[2023-03-05 07:23] VITALS: BP 94/56
--- NOTE | 2023-03-05 16:58 | NUR ---
PALLIATIVE CARE RN HERE TO S/W PT'S SISTER (DAYANA). SISTER HERE VISITING.
--- NOTE | 2023-03-05 17:53 | NUR ---
Arrived to Pt's room with Primary RN Desiree reviewing plan of care with Pt's sister Sharlene (Pt's MPOA) out in the early. Joined conversation and offered therapeutic listening. Reviewed ST recommendations for NPO. Gentle education on disease process including trajectory and the importance of planning for the future. Discuss potential options pending Pt's clinical course through hospital stay. Discussed options for nutrition including IV nutrition and Ng pending recommendations. 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 Discussed the potential need to consider hospice. Sister Sharlene reports Pt's PCP offered hospice services in the past and Pt was not ready at that time. Continued therapeutic listening. Pt resting in bed and is A&OX3/4. 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 Pt denies pain, anxiety, nausea, and dyspnea. Discussed potential nutrition options with Pt reporting being in agreement with IV nutrition or NG for short term but does not want anything fdc. As conversation continues engages in some nonsensical conversation. Continued therapeutic listening. Ended visit to allow Pt to rest. Spoke with Dr Wells and discussed case. Relayed information regarding Pt and sister being in agreement with short term artifical nutrion and no fdc. Palliative Care will remain available
--- NOTE | 2023-03-05 18:46 | NUR ---
SHIFT SUMMARY PT HAS RESTED QUIETLY THROUGHOUT SHIFT. ON RA WITH SATS >90%. IVF'S INFUSING WITH TIMED IV ABX & IV KEPPRA GIVEN ORDERED PER MD. PT DENIES PAIN & SOB. PT REMAINS NPO, ST DID F/U SWALLOW EVAL THIS MORNING, PT FAILED AGAIN TODAY. MD ORDERED MANAGER M[employer] CONSULT FOR NUTRITION EVAL FOR APPROPRIATE PATH TO PROVIDE PT WITH NUTRITION. WILL LIKELY BE IV NUTRITION. PT IS ALERT & RESPONDS TO QUESTIONS ASKED, IS CONFUSED AT TIMES AND WILL AT TIMES ANSWER WITH NON SENSICAL RESPONSES. ABLE TO EASILY REDIRECT PT. IS ABLE TO COUGH UP SECRETIONS & CLEAR THROAT. DENTAL HYGIENIST SAW PT TODAY. PALLIATIVE CARE IS CONSULTING. CALL LIGHT WITHIN REACH & BED IN LOW POSITION.
[2023-03-05 20:19] VITALS: BP 94/61
[2023-03-06 05:41] VITALS: BP 119/64
[2023-03-06 06:07] LABS: Anion Gap 8 mmol/L (6-16); Blood Urea Nitrogen 26 mg/dL (8-24); Bun/Creatinine Ratio 38.7 (12.0-20.0); CO2, Blood 20 mmol/L (21-32); Calcium, Blood 7.4 mg/dL (8.5-10.1); Chloride, Blood 118 mmol/L (98-108); Creatinine, Blood 0.67 mg/dL (0.60-1.20); Glomerular Filtration Rate 94 (60-); Glucose, Blood 80 mg/dL (70-99); Magnesium, Blood 1.8 mg/dL (1.6-2.4); Phosphorus, Blood 2.2 mg/dL (2.5-4.9); Potassium, Blood 3.3 mmol/L (3.5-5.5); Sodium, Blood 146 mmol/L (136-145); Triglycerides 91 mg/dL (30-160)
--- NOTE | 2023-03-06 06:07 | NUR ---
SHIFT SUMMARY PATIENT MORE ALERT/INTERACTIVE THIS SHIFT THEN PRIOR NIGHT. PLEASANT AND COOPERATIVE WITH ALL CARES, MAKES NEEDS KNOWN. NO COUGHING THIS SHIFT, APPEARS CALM, RELAXED. PG TO MEGAN, INFUSING CLINIMIX @60mL/HR. 22G PIV TO LEFT FA INFUSING NS@75. CONTINUES ON TELE, SR60s. NO ACUTE CHANGES NOTED OVERNIGHT. BED IN LOW POSITION, HOB ELEVATED PER PATIENT COMFORT, CALL LIGHT WITHIN REACH.
--- NOTE | 2023-03-06 17:19 | NUR ---
SHIFT SUMMARY PT IS A&O X 2, AT TIMES IS QUITE CONFUSED & AT TIMES DELUSIONAL. MD S/W WITH PT'S SISTER (DAYANA) BY PHONE. RECEIVED COMFORT CARE ORDERS PER MD. PT DENIES PAIN OR SOB. DIET ORDERS RECEIVED & PT IS EATING PUREED FOODS. RECEIVED DIET ORDERS FROM MD TO INCREASE DIET ALEXSANDRA. IV CLINIMIX & LIPIDS DC'D. IVF'S INFUSING TIL CURRENT BAG IS FINISHED THEN IVF'S WILL BE STOPPED. PLAN IS FOR RETURN TO [facility] ON WEDNESDAY.
--- NOTE | 2023-03-07 04:43 | NUR ---
SHIFT SUMMARY PATIENT A/0x2, PLEASANTLY CONFUSED AT TIMES. APPEARES IN NO ACUTE DISTRESS. DENIES PAIN NOR DISCOMFORT. INCONTINENT, ATTENDS IN PLACE. NHAN CARE PROVIDED, TOLERATED WELL. OCCATIONALLY ENGAGING IN SELF-TALK WHEN AWAKE. CONTINUES ON COMFORT CARE, NO ACUTE CHANGES NOTED OVERNIGHT. BED IN LOW POSITION, HOB ELEVATED FOR PATIENT COMFORT, CALL LIGHT WITHIN REACH.
--- NOTE | 2023-03-07 17:19 | NUR ---
SHIFT SUMMARY A&O X 1-2, VSS. IS AT TIMES MORE CONFUSED THAN OTHER TIMES, TALKS TO SELF IN THE ROOM. WILL SPEAK ABOUT EVENTS THAT ARE NOT HAPPENING IN HIS ROOM, SUCH "THOSE GUYS OVER THERE ARE PAINTING WITH A STRONG PAINT", "I HEAR SOMEONE KICKING IN THE DOOR OVER THERE" HE POINTS AT THE WINDOW. WILL YELL OUT AT TIMES. DENIES PAIN & SOB. PT UP TO RECLINER CHAIR AT BEDSIDE WITH MAX ASSIST X 2. APPETITE IS MARGINAL. IS ABLE TO FEED SELF. NEEDS HIS SOUPS IN A COFFEE CUP SO HE CAN DRINK THEM. IS NOW COMFORT CARE. PLAN IS FOR DC BACK TO [facility].
--- NOTE | 2023-03-08 04:16 | NUR ---
SHIFT SUMMARY PATIENT IS A/Ox1-2, EXPRESSING DISORGANIZED THOUGHT, TANGENTIAL, INCOHERANT AT TIMES. PLEASANTLY CONFUSED. APPEARES IN NO ACUTE DISTRESS. UPON HOURLY ROUNDING WAS FOUND TO BE SPREADING FECAL MATTER ON SIDES OF BED AND ON BLAKETS. PATIENT STATED,"I WAS ONLY FISHING, I'M FINE." PATIENT WAS CALM, COOPERATIVE AND ALLOWED THIS RN AND HAND COKE DRAWER TO PERFORM COMPLETE BED CHANGE AND PRIVIDE NHAN CARE. TAKES MEDICATIONS WHOLE WITH PUDDING WELL WITHOUT DIFFICULTY SWOLLOWING NOTED. CONTINUES ON COMFORT CARE. BED LOCKED AND IN LOW POSITION, CALL LIGHT WITHIN REACH.
--- NOTE | 2023-03-08 09:00 | NUR ---
PT PLEASANT COOP ALERT TO SELF. PERSONAL JOB HISTORY. 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 FAILED SWALLOW EVAL. IS COMFORT CARE, HE DID TAKE MEDS PO WITH CHOCOLATE PUDDING. DID WELL. REFUSED AFTER JUST A COUPLE BITES. PER AIDE, ATE ABOUT 75% OF BREAKFAST. HE DENIES PAIN. STATES NO NEEDS FOR ANYTHING AT THIS TIME. NO OTHER CONCERNS NOTED.
--- NOTE | 2023-03-08 10:25 | NUR ---
Comfort Care Visit Pt resting in bed and denies pain, dypnea, and anxiety. Pt has visitors at bedside. Pt reports no concerns at this time. Spoke with Primary RN Zheng and discussed case. No concerns reported at this time. Palliative Care will remain available
[2023-03-08] MEDS ORDERED: IPRAT-ALBUT 0.5-3 ML INH (12:49)
[2023-03-08 14:47] LABS: SARS-Cov-2 (COVID-19) PCR, MMC NEGATIVE (NEGATIVE)
--- NOTE | 2023-03-08 15:30 | NUR ---
CALLED REPORT TO YENNIFER AT [facility]. PEND TRANSPORT AT [id number]
--- NOTE | 2023-03-08 16:45 | NUR ---
PT [id number] HERE TO TAKE PT TO [facility], IV PULLED BY RADHA NELSON. PT OUT AT [id number]
== END 2023-03-08 16:48 | DRG 177 ==
LOC: ER 04:40 → MEDS 08:29
PROVIDERS: Family Medicine; Hospitalist; Student in an Organized Health Care Education/Training Program; ADMIT Internal Medicine
DX: J69.0 Pneumonitis due to inhalation of food and vomit (principal); J96.01 Acute respiratory failure with hypoxia; J96.02 Acute respiratory failure with hypercapnia; R64 Cachexia; B37.41 Candidal cystitis and urethritis; E87.0 Hyperosmolality and hypernatremia; G81.94 Hemiplegia, unspecified affecting left nondominant side; Z51.5 Encounter for palliative care; Z20.822 Contact with and (suspected) exposure to COVID-19; I12.9 Hypertensive chronic kidney disease with stage 1 through stage 4 chronic kidney disease, or unspecified chronic kidney disease; E83.39 Other disorders of phosphorus metabolism; E87.6 Hypokalemia; N18.30 Chronic kidney disease, stage 3 unspecified; F03.90 Unspecified dementia, unspecified severity, without behavioral disturbance, psychotic disturbance, mood disturbance, and anxiety; R13.10 Dysphagia, unspecified; R00.0 Tachycardia, unspecified; G40.909 Epilepsy, unspecified, not intractable, without status epilepticus; N40.0 Benign prostatic hyperplasia without lower urinary tract symptoms; Z98.890 Other specified postprocedural states; Z98.61 Coronary angioplasty status; Z88.1 Allergy status to other antibiotic agents; Z79.899 Other long term (current) drug therapy; Z79.2 Long term (current) use of antibiotics; Z86.011 Personal history of benign neoplasm of the brain; Z68.24 Body mass index [BMI] 24.0-24.9, adult; Z99.81 Dependence on supplemental oxygen
CPT/HCPCS: 0241U; 36415; 71045; 80048; 80053; 82803; 83735; 83880; 84100; 84478; 84484; 85025; 92526; 92610; 93005; 93010; 94640; 94664; 94760; 96365; 96372; 96375; 96376; 99285-25; A9270; C1751; G0378; J0295; J1650; J1953; J3411; J7030; U0002